=== PATIENT | female | born 1990 | race Caucasian/White ===

== ENCOUNTER 2016-04-26 01:05 | Emergency (ER) | payer MEDICAID ==
[~2016-04-26] VITALS: Ht 170.2 cm; Wt 85.8 kg
[~2016-04-26 01:05] MED LIST: CLIN1CAP6 PO; DOXY10TA PO; PREN29TA PO; ZOFR4TAB3 SL
[2016-04-26 01:12] VITALS: BP 111/82; PULSE 117; RESP 18; TEMP 98.8; O2SAT 96
--- NOTE | 2016-04-26 02:32 | PD ---
HPI Chief Complaint: Chest Pain Time Seen by Provider: 02:26 Travel History International Travel<30 days: No Contact w/Intl Traveler<30days: No Traveled to known affect area: No History of Present Illness HPI 26-year-old female presents to the emergency department by private transportation for complaint of chest pain and abdominal pain. According the patient she is 7 months . Patient is 4 para 3 AB 0. Patient states she is followed by up CYTOLOGIST and [facility] and was seen by her specialist 2 weeks ago at that time she was told that she's been having abdominal pain due to adjustment of the pelvis for the and due to her chronic back pain that she previously was prescribed hydrocodone for related to previous back surgeries. Patient states she's been taking acetaminophen but has not provided adequate pain relief. Patient states she took acetaminophen before dinner this evening but vomited the acetaminophen and she takes this for her chronic hip/lower abdominal pain/back pain. Patient states that she did not notice any bilious emesis or coffee-ground emesis or hematemesis. Patient states that she was not having chest pain or new abdominal pain at that time. Patient states that she has not been having any burning with urination or frequent urination vaginal discharge or vaginal bleeding or fluid leak. 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 Patient's had no fever or chills. Patient denies flank pain. Patient states that at this time her chest pain which started suddenly around midnight that she thought might be reflux has completely resolved. Patient states that her abdominal discomfort is persistent. She does not think that this pain is the same as her hip pain/ pelvic pain/back pain. Patient has not noticed any vaginal discharge or vaginal bleeding or fluid leak since onset of abdominal discomfort around 12:30 AM or 1 AM. Patient states the discomfort has decreased. Patient reports that her chronic pain over the past 2 weeks is typically 10 over 10 in intensity and this is not as severe. PFSH Past Medical History Narrative Medical Chronic back pain, back surgery, , 4 para 3 AB 0 positive tobacco use; nursing notes reviewed Hx Anticoagulant Therapy: No Cardiovascular Problems: No Chemotherapy: No Cerebrovascular Accident: No Diabetes: No Diminished Hearing: No Respiratory: No : 3 Para: 3 Past Surgical History Section: Yes Hysterectomy: No Social History Alcohol Use: No Tobacco Use: Yes (1/2 ppd ) Substance Use: No Allergies-Medications (Allergen,Severity, Reaction): Coded Allergies: Latex (Verified Allergy, Intermediate, Rash, 04/26/16) Reported Meds & Prescriptions Reported Meds & Active Scripts Active Reported Plus Iron 29-1 mg ( Vit-Iron Carbonyl) 1 Tab Tab 1 Tab PO DAILY Review of Systems Except as stated in HPI: all other systems reviewed are Neg General / Constitutional: No: Fever, Chills HENT: No: Congestion Cardiovascular: Positive: Chest Pain or Discomfort, No: Palpitations, Diaphoresis, Syncope, Dyspnea on exertion Respiratory: No: Cough, Shortness of Breath Gastrointestinal: Positive: Abdominal Pain, No: Nausea, Vomiting, Diarrhea, Hematemesis, Loss of Appetite Genitourinary: No: Urgency, Frequency, Dysuria, Pelvic Pain, Flank Pain, Discharge, Vaginal Bleeding Musculoskeletal: No: Myalgias, Arthralgias Skin: No Rash Neurologic: No: Weakness Psychiatric: No: Anxiety Hematologic/Lymphatic: No: Easy Bruising Physical Exam Narrative GENERAL: Well-developed well-nourished female in no acute distress no respiratory distress SKIN: Warm and dry. HEAD: Normocephalic. EYES: No scleral icterus. No injection or drainage. NECK: Supple, trachea midline. No JVD or lymphadenopathy. CARDIOVASCULAR: Regular rate and rhythm without murmurs, gallops, or rubs. RESPIRATORY: Breath sounds equal bilaterally. No accessory muscle use. GASTROINTESTINAL: Abdomen soft, non-tender, nondistended; fundal height 4 finger breaths below the diaphragm; activity noted to palpation no rhythmic contractions palpable; bedside heart tones 148. Pelvic exam: Bimanual exam cervix is long and thick with os closed. No blood noted on exam glove. MUSCULOSKELETAL: No cyanosis, or edema. BACK: Nontender without obvious deformity. No CVA tenderness. Data Data Last Documented VS Vital Signs Date Time Temp Pulse Resp B/P Pulse Ox O2 Delivery O2 Flow Rate FiO2 04/26/16 04:53 99 18 110/68 99 04/26/16 02:45 Room Air 04/26/16 01:12 98.8 Orders Urinalysis - C+S If Indicated (04/26/16 02:45) Urine Culture (04/26/16 02:53) Nitrofurantoin Monohyd Macrocr (Macrobid (04/26/16 03:30) Acetaminophen (Tylenol) (04/26/16 03:30) Fentanyl Inj (Fentanyl Inj) (04/26/16 06:15) Labs Laboratory Tests Test 04/26/16 02:53 Urine Color YELLOW Urine Turbidity SLIGHT Urine pH 6.0 Urine Specific [place] 1.015 Urine Protein TRACE mg/dL Urine Glucose (UA) NEG mg/dL Urine Ketones NEG mg/dL Urine Occult Blood SMALL Urine Nitrite POS Urine Bilirubin NEG Urine Leukocyte Esterase TRACE Urine WBC 0-2 /hpf Urine Squamous Epithelial 0-5 /hpf Cells Urine Bacteria MOD /hpf Urine Mucus OCC /lpf Microscopic Urinalysis Comment CULTURE INDICATED MDM Medical Decision Making Medical Screen Exam Complete: Yes Emergency Medical Condition: Yes Medical Record Reviewed: Yes Interpretation(s) EKG: Sinus tachycardia rate [address] elevation or injury pattern change noted Differential Diagnosis Atypical chest pain, esophagitis, biliary colic, abdominal pain, premature labor , UTI, appendicitis Narrative Course EKG performed which reveals sinus tachycardia rate of [address] elevation or injury pattern change noted; urine specimen collected and sent for resulting UA: Positive nitrites positive leukocyte Estrace positive bacteria culture indicated; patient administered first dose of oral antibiotic Macrobid as well as acetaminophen for complaint of pain Case discussed with on-call OB ED physician Dr. Ribeiro who will accept patient to [facility] OB ED for monitoring; patient is aware of plan to transfer her from this emergency department [facility] to the [facility] OB ED for monitoring; patient is aware that she will be transported by EMS to our main campus facility. Physician Communication Physician Communication case discussed with Dr Ribeiro -- OB ED MD --will accept to [facility] OB ED for monitoring Diagnosis Primary Impression: Abdominal pain during in third trimester Additional Impressions: UTI (urinary tract infection) Qualified Code: N39.0 - Urinary tract infection without hematuria, site unspecified Atypical chest pain Admitting Information Admitting Physician Requests: Observation Omayra lAlen MD Apr 26, 2016 02:32 Omayra Allen MD Apr 26, 2016 02:32
[2016-04-26 02:45] VITALS: BP 105/69; PULSE 102; RESP 18; O2SAT 98
[2016-04-26 03:05] LABS: BLOOD, URINE SMALL (NEG); GLUCOSE,URINE NEG (NEG); KETONE, URINE NEG (NEG)
[2016-04-26 03:06] LABS: NITRITE,URINE POS (NEG); URINE COLOR YELLOW (YELLW/STRAW)
[2016-04-26 03:07] LABS: MUCUS URINE OCC /lpf (OCC)
[2016-04-26 03:08] LABS: BACTERIA, URINE MOD /hpf; COMMENT (UR) CULTURE INDICATED; CULTURE IF INDICATED CULTURE INDICATED; SQUAMOUS EPITHELIAL CELL URINE 0-5 /hpf (0-5); WBC, URINE 0-2 /hpf (0-5)
[2016-04-26] MEDS ORDERED: ACETAMINOPHEN 325 MG TAB PO ONE (03:30)
[2016-04-26] MEDS ORDERED: NITROFURANTOIN MONOHYD MACROCR 100 MG CAP PO ONE (03:30)
[2016-04-26 04:53] VITALS: BP 110/68
--- NOTE | 2016-04-26 06:07 | PD ---
HPI Chief Complaint Lower abdominal pain and 11 PM last night Date Seen: Apr 26, 2016 Travel History International Travel<30 Days: No Contact w/Intl Traveler<30Days: No Known Affected Area: No History of Present Illness HPI Patient is a 26-year-old white female previous at 30 weeks who presents as a transfer from [facility] for evaluation of the fetus after workup there for lower abdominal pain and back pain, she has no contractions no bleeding or rupture the membranes, heart rate is reactive , there are no contractions, and [place] the emergency room doctor workup for pain and shows a mild UTI but it had already been diagnosed by her OB doctor and [facility] and the patient had not received her Macrobid that the been called in [facility] her on Wednesday 2 days ago. The patient has a history of back surgeries and chronic pain in the abdomen and back long-term Para: 3 : 5 History Obstetric History Obstetric History previous Past Surgical History Narrative Surgical section, multiple back surgeries Social History Narrative Social History She has a history of substance abuse the past Alcohol Use: No Tobacco Use: Yes Substance Abuse: No Allergies-Medications (Allergen,Severity, Reaction): Coded Allergies: Latex (Verified Allergy, Intermediate, Rash, 04/26/16) Home Meds Reported Medications Vit-Iron Carbonyl ( Plus Iron 29-1 mg)1 Tab Tab1 Tab PO DAILY #30 TAB Ref 0 01/06/16 Discontinued Reported Medications Doxylamine-Pyridoxine (Diclegis)10-10 Mg Tab1 Tab PO DAILY 01/06/16 Doxylamine-Pyridoxine (Diclegis)10-10 Mg Tab2 Tab PO HS 01/06/16 Discontinued Scripts Clindamycin 300 Mg [id number] Mg PO Q6H 10 Days Ref 0 Prov:Javid Boles MD 01/06/16 Ondansetron Odt (Zofran Odt)4 Mg Tab4 Mg SL Q8HR PRN (Nausea/Vomiting) #12 TAB Ref 0 Prov:Javid Boles MD 01/06/16 Review of Systems General / Constitutional: No: Fever, Weight Gain, Chills, Other Eyes: No: Diploplia, Blurred Vision, Visual changes, Pain, Photophobia HENT: No: Headaches, Vertigo, Lightheadedness Cardiovascular: No: Irregular Rhythm, Chest Pain or Discomfort, Palpitations, Tachycardia, Syncope, Varicosities, Edema, Cyanosis Respiratory: No: Cough, Short of Breath, Other Gastrointestinal: Abdominal Pain, No: Nausea, Vomiting, Diarrhea Genitourinary: Pelvic Pain, No: Decreased Urinary Output, Oliguria Musculoskeletal: No: Limited ROM, Weakness, Cramping, Edema, Pain Skin: No Rash, No Itching, No Dryness, No Lumps, No Change in Pigmentation, No Change in Nails, No Alopecia, No Lesions Neurologic: No: Weakness, Dizziness, Syncope, Focal Abnormalities, Coordination Problem, Headache, Slurred Speech, Seizures Psychiatric: No: Depression, Suicidal Ideations, Homicidal Ideation Endocrine: No: Heat Intolerance, Cold Intolerance, Polydipsia, Polyuria, Other Physical Exam Vital Signs Date Time Temp Pulse Resp B/P Pulse Ox O2 Delivery O2 Flow Rate FiO2 04/26/16 04:53 99 18 110/68 99 04/26/16 04:51 18 04/26/16 02:45 102 18 105/69 98 Room Air 04/26/16 01:12 98.8 117 18 111/82 96 Narrative GENERAL: Well-nourished, well-developed patient. In no acute distress SKIN: Warm and dry. HEAD: Normocephalic and atraumatic. EYES: No scleral icterus. No injection or drainage. ENT: No nasal drainage noted. Mucous membranes pink. Airway patent. NECK: Supple, trachea midline. No JVD. CARDIOVASCULAR: Regular rate and rhythm without murmurs, gallops, or rubs. RESPIRATORY: Breath sounds equal bilaterally. No accessory muscle use. BREASTS: Bilateral exam showed no masses , no retractions, no nipple discharge. ABDOMEN/GI: Abdomen soft, minimally-tender, bowel sounds present, no rebound, no guarding Gravid to [30-] weeks size Fundal Height: [30-] GENITOURINARY: External Genitalia: intact and normal in appearance BUS glands: [-] Cervix: [Closed-] Dilatation: [Closed-] Effacement: [-] Thick Station: [-3] Membranes: [intact ] Uterine Contractions: [none-] FHT's: Category: [1-] Baseline: [-144] Reactive: [-yes] Variability: [mod-] Decels: [-none] EXTREMITIES: No cyanosis or edema. BACK: Nontender without obvious deformity. No CVA tenderness. NEUROLOGICAL: Awake and alert. Motor and sensory grossly within normal limits. Five out of 5 muscle strength in all muscle groups. Normal speech. Data Data Orders Urinalysis - C+S If Indicated (04/26/16 02:45) Urine Culture (04/26/16 02:53) Nitrofurantoin Monohyd Macrocr (Macrobid (04/26/16 03:30) Acetaminophen (Tylenol) (04/26/16 03:30) Labs Laboratory Tests Test 04/26/16 02:53 Urine Color YELLOW Urine Turbidity SLIGHT Urine pH 6.0 Urine Specific [place] 1.015 Urine Protein TRACE Urine Glucose (UA) NEG Urine Ketones NEG Urine Occult Blood SMALL Urine Nitrite POS Urine Bilirubin NEG Urine Leukocyte Esterase TRACE Urine WBC 0-2 Urine Squamous Epithelial 0-5 Cells Urine Bacteria MOD Urine Mucus OCC Microscopic Urinalysis Comment CULTURE INDICATED Date/Time Procedure Status Source Growth 04/26/16 02:53 Urine Culture Received Urine Clean Catch Pending MDM Interpretation(s) This patient is a 26-year-old white female previous who is followed by an OB doctor in [facility] and she lives [place], she presents complaining of lower abdominal pain bilaterally and back pain chronically. She was transferred from the [facility] [place] to monitor the baby after their workup and treatment. She has a mild UTI that was confirmed by josiane fenton and she is known this for several days her doctor called in a prescription for Macrobid 2 days ago she has not been able to get it yet. The monitor tracing is reactive and no contractions cervix is closed, this appears to be a soft tissue strain her pain is chronic, and all OB problems been ruled out she has a normal fetus normal heart rate tracing Plan Planned off the patient IM shot of pain medication just to relieve her symptoms tonight, she is to be at home bedrest over the next several days with heating pad or hot bath, she is use Tylenol liberally and increase her oral fluid intake and take her prescribed Macrobid for the UTI ,.that she's to follow-up with her OB doctor in on Wednesday if not improved Diagnosis Diagnosis: Primary Impression: Abdominal pain during in third trimester Additional Impressions: Atypical chest pain UTI (urinary tract infection) Qualified Code: N39.0 - Urinary tract infection without hematuria, site unspecified Disposition: 01 DISCHARGE HOME Condition: Stable Fredy Charles II, MD Apr 26, 2016 06:07
[2016-04-26 07:22] VITALS: RESP 16
--- NOTE | 2016-04-26 11:05 | EKG ---
Date Performed: 04/26/2016 Time Performed: 01:29:34 PTAGE: 26 years EKG: Sinus tachycardia. Poor R wave progression - probable normal variant Inferior T wave change s are nonspecific Borderline ECG NO PREVIOUS TRACING DOCTOR: Bakari Trejo Interpretating Date/Time 04/26/2016 11:03:37
== END 2016-04-26 07:36 | disposition home or self-care (01) ==
LOC: PHED 01:05 → HOBED 07:36
DX: O23.43 Unspecified infection of urinary tract in pregnancy, third trimester (principal); B96.20 Unspecified Escherichia coli [E. coli] as the cause of diseases classified elsewhere; R07.89 Other chest pain; Z3A.30 30 weeks gestation of pregnancy
CPT/HCPCS: 81001; 87077; 87086; 87186; 93005; 96372; 99284; J3010; 99281

== ENCOUNTER 2016-04-29 21:35 | Inpatient (IN) | payer MEDICAID ==
[2016-04-29] MEDS: ceFAZolin 2 GM PREMIX 50 ML IV SCH (22:00)
[2016-04-29] MEDS ORDERED: LACTATED RINGER'S 1000 ML INJ 1,000 ML IV SCH (22:17)
--- NOTE | 2016-04-29 22:17 | HHI.HP ---
HPI Chief Complaint Severe back pain Date Seen: Apr 29, 2016 Travel History International Travel<30 Days: No Contact w/Intl Traveler<30Days: No Known Affected Area: No History of Present Illness HPI Patient is a 26-year-old white female previous now 31 weeks who presents combining of severe and increasing back pain. She denies vaginal bleeding or leakage of fluid or contractions denies abdominal pain just severe back pain is her problem. This patient was here 3 days ago I saw her then she was referred from [facility] just evaluation of the baby after being seen there for abdominal pain. Urinalysis negative obtained there was positive for UTI culture was done which showed greater than 100,000 colonies of Escherichia coli which basically was sensitive to all every antibiotic on the list, however the patient did start Macrobid a day or so late but did started she's had Cherri half of her Macrobid dosing except for today when she is had nausea and vomiting and didn't take it but even though she started the Macrobid which the Escherichia coli was sensitive to Macrobid ,she's only gotten worse not better. heart rate tracing is reactive today and no contractions noted Para: 3 : 5 History Obstetric History Obstetric History Previous Past Surgical History Narrative Surgical section, multiple back surgeries Social History Alcohol Use: No Tobacco Use: Yes Substance Abuse: Yes Allergies-Medications (Allergen,Severity, Reaction): Coded Allergies: Latex (Verified Allergy, Intermediate, Rash, 04/26/16) Home Meds Reported Medications Vit-Iron Carbonyl ( Plus Iron 29-1 mg)1 Tab Tab1 Tab PO DAILY #30 TAB Ref 0 01/06/16 Discontinued Reported Medications Doxylamine-Pyridoxine (Diclegis)10-10 Mg Tab1 Tab PO DAILY 01/06/16 Doxylamine-Pyridoxine (Diclegis)10-10 Mg Tab2 Tab PO HS 01/06/16 Discontinued Scripts Clindamycin 300 Mg [id number] Mg PO Q6H 10 Days Ref 0 Prov:Javid Boles MD 01/06/16 Ondansetron Odt (Zofran Odt)4 Mg Tab4 Mg SL Q8HR PRN (Nausea/Vomiting) #12 TAB Ref 0 Prov:Javid Boles MD 11/28/16 Review of Systems General / Constitutional: No: Fever, Weight Gain, Chills, Other Eyes: No: Diploplia, Blurred Vision, Visual changes, Pain, Photophobia HENT: No: Headaches, Vertigo, Lightheadedness Cardiovascular: No: Irregular Rhythm, Chest Pain or Discomfort, Palpitations, Tachycardia, Syncope, Varicosities, Edema, Cyanosis Respiratory: No: Cough, Short of Breath, Other Gastrointestinal: Nausea, Vomiting, No: Diarrhea Genitourinary: No: Decreased Urinary Output, Oliguria Musculoskeletal: No: Limited ROM, Weakness, Cramping, Edema, Pain Skin: No Rash, No Itching, No Dryness, No Lumps, No Change in Pigmentation, No Change in Nails, No Alopecia, No Lesions Neurologic: No: Weakness, Dizziness, Syncope, Focal Abnormalities, Coordination Problem, Headache, Slurred Speech, Seizures Psychiatric: No: Depression, Suicidal Ideations, Homicidal Ideation Endocrine: No: Heat Intolerance, Cold Intolerance, Polydipsia, Polyuria, Other Physical Exam Narrative GENERAL: Well-nourished, well-developed patient. In moderate distress from pain SKIN: Warm and dry. HEAD: Normocephalic and atraumatic. EYES: No scleral icterus. No injection or drainage. ENT: No nasal drainage noted. Mucous membranes pink. Airway patent. NECK: Supple, trachea midline. No JVD. CARDIOVASCULAR: Regular rate and rhythm without murmurs, gallops, or rubs. RESPIRATORY: Breath sounds equal bilaterally. No accessory muscle use. BREASTS: Bilateral exam showed no masses , no retractions, no nipple discharge. ABDOMEN/GI: Abdomen soft, non-tender, bowel sounds present, no rebound, no guarding , positive bilateral CVA tenderness right greater than left Gravid to [-31] weeks size Fundal Height: [31-] GENITOURINARY: External Genitalia: intact and normal in appearance BUS glands: [-] Cervix: [-] Dilatation: [Closed-] Effacement: [-] Thick Station: [-3] Membranes: [intact ] Uterine Contractions: [none-] FHT's: Category: [-1] Baseline: [133-] Reactive: [yes-] Variability: [mod-] Decels: [none-] EXTREMITIES: No cyanosis or edema. BACK: Nontender without obvious deformity. No CVA tenderness. NEUROLOGICAL: Awake and alert. Motor and sensory grossly within normal limits. Five out of 5 muscle strength in all muscle groups. Normal speech. Data Data Orders Ob (2e) Additional Admit Info (04/29/16 22:07) Labs C urinalysis from April 26 with a positive UA and positive urine culture for Escherichia coli Assessment/Plan Assessment and Plan This patient is 26-year-old white female previous at 31 weeks with increasing back pain after having a urine culture positive for Escherichia coli done 48 hours ago, she has been on Macrobid for the last day and a half but it is only at worse not better sores her pain she denies fever chills , however is positive for nausea vomiting today saying she can't hold anything down. On exam the patient has marked CVA tenderness bilaterally right greater than left. Impression is pyelonephritis at 31 weeks, plan is IV antibiotics inpatient for at least 48 hours or until she has a significant decrease in her CVA tenderness and after that suppressive therapy the rest of with a single Macrodantin daily Fredy Charles II, MD Apr 29, 2016 22:17
[2016-04-29] MEDS ORDERED: ACETAMINOPHEN 325 MG TAB PO PRN (22:30)
[2016-04-29] MEDS ORDERED: ZOLPIDEM TARTRATE 5 MG TAB PO PRN (22:30)
[2016-04-29] MEDS ORDERED: SODIUM CHLORIDE 0.9% FLUSH 10 ML FLUSH IV FLUSH PRN (22:30)
[2016-04-29 22:40] VITALS: RESP 18
[2016-04-29] MEDS: ONDANSETRON HCL 4 MG/2 ML VIAL IV PRN (23:00)
[2016-04-29 23:30] VITALS: RESP 18
[2016-04-29 23:34] LABS: AUTOMATED NEUTROPHIL # 8.6 TH/MM3 (1.8-7.7); BASOPHIL # 0.1 TH/MM3 (0-0.2); BASOPHIL % 0.7 % (0.0-2.0); EOSINOPHIL # 0.1 TH/MM3 (0-0.4); HEMATOCRIT 31.4 % (35.0-46.0); HEMO FLAGS DIFF FINAL; LYMPH % 28.1 % (9.0-44.0); LYMPHOCYTE # 3.7 TH/MM3 (1.0-4.8); MEAN CELL VOLUME 94.3 FL (80.0-100.0); MEAN CORPUSCULAR HEMOGLOBIN 32.7 PG (27.0-34.0); MEAN CORPUSCULAR HGB CONC 34.7 % (32.0-36.0); MONO % 5.5 % (0.0-8.0); NEUT % 64.7 % (16.0-70.0); PLATELET COUNT 168 TH/MM3 (150-450); RED BLOOD COUNT 3.33 MIL/MM3 (4.00-5.30); RED CELL DISTRIBUTION WIDTH 13.1 % (11.6-17.2); WHITE BLOOD COUNT 13.3 TH/MM3 (4.0-11.0)
[2016-04-30] VITALS (10 sets, daily range): BP systolic 101–109; BP diastolic 57–63; PULSE 93–95; RESP 18–20; TEMP 97.4–98
[2016-04-30 00:13] LABS: AMPHETAMINE, URINE NEG (NEG); BARBITURATES, URINE NEG (NEG); COCAINE, URINE NEG (NEG)
[2016-04-30] MEDS: HYDROmorphone HCL PF 2 MG/ML VIAL IV PRN ×2 (01:15→04:48)
[2016-04-30] MEDS ORDERED: HYDROmorphone HCL PF 1 MG/ML VIAL IV PRN (01:15)
[2016-04-30] MEDS ORDERED: CITRIC ACID-SODIUM CITRATE LIQ 30 ML UDC ONE (05:21)
[2016-04-30] MEDS: ceFAZolin 2 GM PREMIX 50 ML IV SCH (06:25)
[2016-04-30] MEDS ORDERED: oxyCODONE/ACETAMINOPHEN 5 MG/325 MG TAB PO PRN (07:30)
[2016-04-30] MEDS: ONDANSETRON HCL 4 MG/2 ML VIAL IV PRN (07:33)
--- NOTE | 2016-04-30 08:38 | PD.OB.ANTE ---
Subjective Diagnosis: (1) UTI (urinary tract infection) (2) Pyelonephritis affecting Interval History Patient seen and examined this morning. Afebrile vital signs stable. No acute events overnight. Patient continues to complain of pain in her back, though she admits to being able to get up and walk around and the room. She understands the plan to start oral pain control as well as one more dose of IV antibiotics. She also understands the plan to go home on a daily antibiotic by mouth until delivery. She agrees with this plan of care. Objective Vital Signs Vital Signs Date Time Temp Pulse Resp B/P Pulse Ox O2 Delivery O2 Flow Rate FiO2 04/30/16 07:45 97.4 18 04/30/16 07:32 95 109/63 04/30/16 06:00 18 04/30/16 05:30 18 04/30/16 04:15 20 04/30/16 03:30 18 04/30/16 03:00 18 04/30/16 01:22 98.0 93 101/57 04/30/16 01:21 18 04/30/16 00:15 18 04/29/16 23:30 18 04/29/16 22:40 18 Lab & Micro Results Test 04/29/16 04/29/16 22:37 23:45 White Blood Count 13.3 TH/MM3 Red Blood Count 3.33 MIL/MM3 Hemoglobin 10.9 GM/DL Hematocrit 31.4 % Mean Corpuscular Volume 94.3 FL Mean Corpuscular Hemoglobin 32.7 PG Mean Corpuscular Hemoglobin 34.7 % Concent Red Cell Distribution Width 13.1 % Platelet Count 168 TH/MM3 Mean Platelet Volume 10.5 FL Neutrophils (%) (Auto) 64.7 % Lymphocytes (%) (Auto) 28.1 % Monocytes (%) (Auto) 5.5 % Eosinophils (%) (Auto) 1.0 % Basophils (%) (Auto) 0.7 % Neutrophils # (Auto) 8.6 TH/MM3 Lymphocytes # (Auto) 3.7 TH/MM3 Monocytes # (Auto) 0.7 TH/MM3 Eosinophils # (Auto) 0.1 TH/MM3 Basophils # (Auto) 0.1 TH/MM3 CBC Comment DIFF FINAL Differential Comment Urine Opiates Screen NEG Urine Barbiturates Screen NEG Urine Amphetamines Screen NEG Urine Benzodiazepines Screen NEG Urine Cocaine Screen NEG Urine Cannabinoids Screen NEG Physical Exam GENERAL: Well-nourished, well-developed patient. CARDIOVASCULAR: Regular rate and rhythm without murmurs, gallops, or rubs. RESPIRATORY: Breath sounds equal bilaterally. No accessory muscle use. ABDOMEN/GI: Abdomen soft, non-tender. Fundus: 32 GENITOURINARY: No contractions EXTREMITIES: No cyanosis or edema, non-tender, without signs of DVT. Back: + CVA tenderness Assessment and Plan Problem List: (1) Pyelonephritis affecting Status: Acute (2) UTI (urinary tract infection) Status: Acute (3) Intrauterine Status: Acute Assessment and Plan This patient is 26-year-old white female previous at 31 weeks with increasing back pain after having a urine culture positive for Escherichia coli with CVA tenderness 1. Intrauterine -Monitoring for contractions -Appropriate heart rate -Continue routine care 2. Pyelonephritis -Monitor vitals currently afebrile -Cefazolin for 48 hours -We will discharge on oral Macrodantin until the end of , after 48 hours of IV antibiotics -Pain control with Percocet -Repeat UA ordered Gavino Srivastava MD R2 Apr 30, 2016 08:38
[2016-04-30] MEDS ORDERED: SODIUM CHLORIDE 0.9% FLUSH 10 ML FLUSH IV FLUSH SCH (09:00)
[2016-04-30] MEDS ORDERED: CALCIUM CARBONATE 500 MG CHEWABLE TAB CHEW SCH (09:00)
[2016-04-30] MEDS ORDERED: NICOTINE 14 MG/24 HR PATCH TD SCH (09:00)
--- NOTE | 2016-04-30 09:51 | PD.OB.ANTE ---
Subjective Diagnosis: (1) Pyelonephritis affecting Diagnosis: Principal (2) UTI (urinary tract infection) Diagnosis: Principal (3) Intrauterine Diagnosis: Principal Interval History This patient has pyelonephritis at 31 weeks with positive urine culture for Escherichia coli and severe costovertebral angle pain she was admitted last night for IV antibiotics for 48 hours minimum. She understood that that was plan to admit her for inpatient therapy and that that was required at this stage she failed outpatient management. Now this morning the patient is decided she has to leave she has makes today she cannot stay in the hospital. I spine to the patient that she is risking her and her baby's health and life leaving prior to appropriate therapy that she could return with high fever or and labor and delivery. She understands this very clearly and still wants to leave she will sign AMA papers and leave [place], she says she was to go to her doctor and get readmitted [facility] for therapy because that's where she plans to have her repeat Objective Vital Signs Vital Signs Date Time Temp Pulse Resp B/P Pulse Ox O2 Delivery O2 Flow Rate FiO2 04/30/16 07:45 97.4 18 04/30/16 07:32 95 109/63 04/30/16 06:00 18 04/30/16 05:30 18 04/30/16 04:15 20 04/30/16 03:30 18 04/30/16 03:00 18 04/30/16 01:22 98.0 93 101/57 04/30/16 01:21 18 04/30/16 00:15 18 04/29/16 23:30 18 04/29/16 22:40 18 Lab & Micro Results Test 04/29/16 04/29/16 22:37 23:45 White Blood Count 13.3 TH/MM3 Red Blood Count 3.33 MIL/MM3 Hemoglobin 10.9 GM/DL Hematocrit 31.4 % Mean Corpuscular Volume 94.3 FL Mean Corpuscular Hemoglobin 32.7 PG Mean Corpuscular Hemoglobin 34.7 % Concent Red Cell Distribution Width 13.1 % Platelet Count 168 TH/MM3 Mean Platelet Volume 10.5 FL Neutrophils (%) (Auto) 64.7 % Lymphocytes (%) (Auto) 28.1 % Monocytes (%) (Auto) 5.5 % Eosinophils (%) (Auto) 1.0 % Basophils (%) (Auto) 0.7 % Neutrophils # (Auto) 8.6 TH/MM3 Lymphocytes # (Auto) 3.7 TH/MM3 Monocytes # (Auto) 0.7 TH/MM3 Eosinophils # (Auto) 0.1 TH/MM3 Basophils # (Auto) 0.1 TH/MM3 CBC Comment DIFF FINAL Differential Comment Urine Opiates Screen NEG Urine Barbiturates Screen NEG Urine Amphetamines Screen NEG Urine Benzodiazepines Screen NEG Urine Cocaine Screen NEG Urine Cannabinoids Screen NEG Physical Exam GENERAL: Well-nourished, well-developed patient. CARDIOVASCULAR: Regular rate and rhythm without murmurs, gallops, or rubs. RESPIRATORY: Breath sounds equal bilaterally. No accessory muscle use. ABDOMEN/GI: Abdomen soft, non-tender. Fundus: [-] GENITOURINARY: External Genitalia: intact and normal in appearance Cervix: [-] Dilatation: [-] Effacement: [-] Station: [-] Presentation: [-] Membranes: [-] Uterine Contractions: [-] FHT's: Category: [-] Baseline: [-] Reactive: [-] Variability: [-] Decels: [-] EXTREMITIES: No cyanosis or edema, non-tender, without signs of DVT. Assessment and Plan Problem List: (1) Pyelonephritis affecting Status: Acute (2) UTI (urinary tract infection) Status: Acute (3) Intrauterine Status: Acute Assessment and Plan This patient is 26-year-old white female previous at 31 weeks with increasing back pain after having a urine culture positive for Escherichia coli with CVA tenderness 1. Intrauterine -Monitoring for contractions -Appropriate heart rate -Continue routine care 2. Pyelonephritis -Monitor vitals currently afebrile -Cefazolin for 48 hours -We will discharge on oral Macrodantin until the end of , after 48 hours of IV antibiotics -Pain control with Percocet -Repeat UA ordered Fredy Charles II, MD Apr 30, 2016 09:50
[2016-04-30] MEDS ORDERED: REMOVE OLD NICODERM (NICOTINE) PATCH TD SCH (21:00)
[2016-05-06 13:27] LABS: BATH SALTS (MDPV) UR NEG (NEG); ECSTASY (MDMA) UR NEG (NEG); HEROIN (6-ACETYLMORPHINE) UR NEG (NEG); K2 SPICE UR NEG (NEG); OBMETHADONE UR NEG (NEG); OXYCODONE (PERCODAN) NEG (NEG); PHENCYCLIDINE URINE NEG (NEG)
== END 2016-04-30 10:00 | disposition left against medical advice (07) | DRG 781 ==
LOC: HOBED 21:35 → H2EA 22:09
PROVIDERS: ADMIT Obstetrics & Gynecology Maternal & Fetal Medicine; ATTEND Obstetrics & Gynecology Maternal & Fetal Medicine
DX: O23.03 Infections of kidney in pregnancy, third trimester (principal); O34.219 Maternal care for unspecified type scar from previous cesarean delivery; B96.20 Unspecified Escherichia coli [E. coli] as the cause of diseases classified elsewhere; N12 Tubulo-interstitial nephritis, not specified as acute or chronic; O99.333 Smoking (tobacco) complicating pregnancy, third trimester; F17.200 Nicotine dependence, unspecified, uncomplicated; Z3A.31 31 weeks gestation of pregnancy; M54.9 Dorsalgia, unspecified; Z91.040 Latex allergy status
CPT/HCPCS: 80307; 85025; 99284; G0481; J0690; J1170; J2405; J3010; J7120

== ENCOUNTER 2016-07-01 23:51 | Emergency (ER) | payer MEDICAID ==
[~2016-07-01] VITALS: Ht 170.2 cm; Wt 81.5 kg
[~2016-07-01 23:51] MED LIST changes: -CLIN1CAP6 PO; -DOXY10TA PO; -ZOFR4TAB3 SL
[2016-07-02 00:10] VITALS: BP 124/92; PULSE 100; RESP 16; TEMP 98.3; O2SAT 98
--- NOTE | 2016-07-02 01:14 | PD ---
HPI Chief Complaint: Pain: Acute or Chronic Time Seen by Provider: 01:09 Travel History International Travel<30 days: No Contact w/Intl Traveler<30days: No Traveled to known affect area: No History of Present Illness HPI The patient is a 26-year-old female that had a on June 10. She complains of pain around the site. She also had a tubal ligation at that time. She saw at 2 weeks her sign painter apprentice who is in [facility] and apparently the incision looked good at that time. There is no vomiting. There is no fever. She is taking BC powders for the pain. The patient is breast- feeding. PFSH Past Medical History Hx Anticoagulant Therapy: No Cardiovascular Problems: No Chemotherapy: No Cerebrovascular Accident: No Diabetes: No Diminished Hearing: No Respiratory: No Tetanus Vaccination: Unknown Influenza Vaccination: No ?: Not : 5 Para: 3 Miscarriage: 1 : 0 Past Surgical History Section: Yes (X 3) Hysterectomy: No Social History Alcohol Use: No Tobacco Use: Yes Substance Use: No Allergies-Medications (Allergen,Severity, Reaction): Coded Allergies: Latex (Verified Allergy, Intermediate, Rash, 07/02/16) Reported Meds & Prescriptions Reported Meds & Active Scripts Active Reported Plus Iron 29-1 mg ( Vit-Iron Carbonyl) 1 Tab Tab 1 Tab PO DAILY Review of Systems Except as stated in HPI: all other systems reviewed are Neg Physical Exam Narrative GENERAL: The patient is alert, oriented 3 and slight apparent distress with her incision discomfort. Her vital signs show heart rate of 100 but otherwise normal. SKIN: Focused skin assessment warm/dry. HEAD: Atraumatic. Normocephalic. EYES: Pupils equal and round. No scleral icterus. No injection or drainage. ENT: No nasal bleeding or discharge. Mucous membranes pink and moist. NECK: Trachea midline. No JVD. CARDIOVASCULAR: Regular rate and rhythm. No murmur appreciated. RESPIRATORY: No accessory muscle use. Clear to auscultation. Breath sounds equal bilaterally. GASTROINTESTINAL: Abdomen soft, non-tender except for around the incision, nondistended. Hepatic and splenic margins not palpable. The incision is tender but there is no erythema, fluctuance present, drainage present are crusting. The wound appears to be healing well. No masses are felt below the incision. She is tender throughout the range of the incision and not on one area. MUSCULOSKELETAL: No obvious deformities. No clubbing. No cyanosis. No edema. NEUROLOGICAL: Awake and alert. No obvious cranial nerve deficits. Motor grossly within normal limits. Normal speech. PSYCHIATRIC: Appropriate mood and affect; insight and judgment normal. Data Data Last Documented VS Vital Signs Date Time Temp Pulse Resp B/P Pulse Ox O2 Delivery O2 Flow Rate FiO2 07/02/16 00:45 18 07/02/16 00:10 98.3 100 124/92 98 MDM Medical Decision Making Medical Screen Exam Complete: Yes Emergency Medical Condition: Yes Medical Record Reviewed: Yes Differential Diagnosis Incision pain, subcutaneous abscess, cellulitis, dehiscence Narrative Course There is no drainage, evidence of abscess or cellulitis or dehiscence. This appears to be simply incision pain. The mother is breast-feeding and she should limit pain medications to Tylenol. Impression: Incision pain Plan: The patient should take plain Tylenol for pain. Diagnosis Primary Impression: Incisional pain Additional Instructions: As we discussed, discontinue the BC powders if you're breast-feeding. Follow- up with your prototype machinist about your son and breast-feeding. Take plain Tylenol for the pain. Follow-up with your sign painter apprentice as soon as possible. Med/Other Pt SpecificInfo: No Change to Meds Disposition: 01 DISCHARGE HOME Condition: Stable Baljit Oliver MD July 02, 2016 01:14
[2016-07-02 01:37] VITALS: BP 122/88; PULSE 92; RESP 18; O2SAT 98
== END 2016-07-02 01:39 | disposition home or self-care (01) ==
LOC: PHED 23:51
DX: R10.9 Unspecified abdominal pain (principal); Z72.0 Tobacco use; Z39.2 Encounter for routine postpartum follow-up
CPT/HCPCS: 99282

== ENCOUNTER 2016-08-02 23:17 | Emergency (ER) | payer MEDICAID ==
[~2016-08-02] VITALS: Ht 170.2 cm; Wt 80.0 kg
[2016-08-02 23:21] VITALS: BP 116/72; PULSE 99; RESP 16; TEMP 98.2; O2SAT 99
[2016-08-03] MEDS ORDERED: NICO14DI T-DERMAL (01:03)
[2016-08-03] MEDS ORDERED: SODIUM CHLOR 0.9% 1000 ML INJ 1,000 ML IV ONE (01:15)
[2016-08-03 01:23] LABS: AUTOMATED NEUTROPHIL # 3.1 TH/MM3 (1.8-7.7); BASOPHIL # 0.1 TH/MM3 (0-0.2); EOSINOPHIL # 0.2 TH/MM3 (0-0.4); EOSINOPHIL % 2.9 % (0.0-4.0); HEMATOCRIT 36.6 % (35.0-46.0); HEMO FLAGS DIFF FINAL; LYMPH % 49.2 % (9.0-44.0); LYMPHOCYTE # 3.9 TH/MM3 (1.0-4.8); MEAN CELL VOLUME 92.3 FL (80.0-100.0); MEAN CORPUSCULAR HEMOGLOBIN 31.5 PG (27.0-34.0); MEAN CORPUSCULAR HGB CONC 34.1 % (32.0-36.0); MONO % 7.3 % (0.0-8.0); NEUT % 39.6 % (16.0-70.0); PLATELET COUNT 169 TH/MM3 (150-450); RED BLOOD COUNT 3.97 MIL/MM3 (4.00-5.30); RED CELL DISTRIBUTION WIDTH 13.5 % (11.6-17.2); WHITE BLOOD COUNT 7.9 TH/MM3 (4.0-11.0)
[2016-08-03 01:29] LABS: BLOOD, URINE TRACE (NEG); COMMENT (UR) CULTURE INDICATED; CULTURE IF INDICATED CULTURE INDICATED; GLUCOSE,URINE NEG (NEG); HYALINE CAST, URINE 1 /lpf (RARE); KETONE, URINE NEG (NEG); MUCUS URINE FEW /lpf (OCC); NITRITE,URINE NEG (NEG); SQUAMOUS EPITHELIAL CELL URINE 4 /hpf (0-5); URINE COLOR YELLOW (YELLW/STRAW)
[2016-08-03 01:34] LABS: APTT (PATIENT) 26.3 SEC (24.3-30.1); INTERNATIONAL NORMALIZED RATIO 0.9 RATIO
[2016-08-03 01:49] LABS: ALT (GPT) 53 U/L (10-53); ANION GAP 6 MEQ/L (5-15); AST (GOT) 31 U/L (15-37); BICARBONATE 29.7 MEQ/L (21.0-32.0); BLOOD UREA NITROGEN 13 MG/DL (7-18); CHLORIDE 109 MEQ/L (98-107); GLOMERULAR FILTRATION RATE 104 ML/MIN (>89); POTASSIUM 3.9 MEQ/L (3.5-5.1); SODIUM (NA) 145 MEQ/L (136-145)
--- NOTE | 2016-08-03 01:58 | PD ---
HPI Chief Complaint: Abdominal Pain Time Seen by Provider: 00:59 Travel History International Travel<30 days: No Contact w/Intl Traveler<30days: No Traveled to known affect area: No History of Present Illness HPI The patient is a 26 year old female who presents to the [facility] emergency department with a history of right lower quadrant abdominal pain and vaginal bleeding since delivering her child on 06/10/2016 by . She denies having any vaginal discharge. She reports that she's had sex only one time since delivery. She denies any concerns about sexually transmitted infections. She last saw her roofing apprentice 5 weeks ago to have her abiodun removed. Her WEB PRODUCTION ASSISTANT is Dr. Beltran in [facility]. The patient denies any history of fever, cough, congestion, neck pain, chest pain, shortness of breath , vomiting, diarrhea, urinary symptoms, or neurologic symptoms. Her last BM was today. She denies any blood in her stool. She is not breast feeding. Additionally, she reports that she developed an itchy rash prior to arrival. She reports that it is the same arm that she's been newly using a nicotine patch on. [facility] Past Medical History Narrative Medical The patient's past medical history is significant for anxiety and depression, cervical dysplasia last colposcopy was at 7 months with her last . Hx Anticoagulant Therapy: No Anxiety: Yes Depression: Yes Cardiovascular Problems: No Chemotherapy: No Cerebrovascular Accident: No Diabetes: No Diminished Hearing: No Respiratory: No ?: Not : 5 Para: 4 Miscarriage: 1 : 0 Tubal Ligation: Yes Past Surgical History Narrative Surgical The patient's past surgical history is significant for colposcopy, back sx x2, c -sections x4, btl. Section: Yes (x4) Hysterectomy: No Social History Alcohol Use: No Tobacco Use: No (quit 06/10/2016. ) Substance Use: No Allergies-Medications (Allergen,Severity, Reaction): Coded Allergies: Latex (Verified Allergy, Intermediate, Rash, 08/03/16) Reported Meds & Prescriptions Reported Meds & Active Scripts Active EC-Naprosyn (Naproxen) 500 Mg Tabdr 500 Mg PO BID PRN Reported Nicotine Patch (Nicotine) 14 Mg/24 Hr Patch 14 Mg T-DERMAL DAILY Review of Systems Except as stated in HPI: all other systems reviewed are Neg General / Constitutional: No: Fever Eyes: No: Visual changes HENT: No: Headaches Cardiovascular: No: Chest Pain or Discomfort Respiratory: No: Shortness of Breath Gastrointestinal: Positive: Abdominal Pain, No: Nausea, Vomiting, Diarrhea, Changes in Bowel Habits, Indigestion, Loss of Appetite Genitourinary: No: Dysuria Musculoskeletal: No: Pain Skin: No Rash Neurologic: No: Weakness Psychiatric: No: Depression Endocrine: No: Polydipsia Hematologic/Lymphatic: No: Easy Bruising Physical Exam Narrative General: The patient is a well-developed well-nourished female in no acute distress. Head and Neck exam: Head is normocephalic atraumatic. Eyes: EOMI, pupils are equal round and reactive to light. Nose: Midline septum with pink mucous membranes Mouth: Dentition unremarkable. Moist mucus membranes. Posterior oropharynx is not erythematous. No tonsillar hypertrophy. Uvula midline. Airway patent. Neck: No palpable lymphadenopathy. No nuchal rigidity. No thyromegaly. Cardiovascular: Regular rate and rhythm without murmurs, gallops, or rubs. Lungs: Clear to auscultation bilaterally. No wheezes, rhonchi, or rales. Abdomen: Soft, with reported discomfort on palpation along the right lower quadrant of the abdomen near the patient's border of the scar that appears to be healing well. There is no wound dehiscence. There is no erythema, edema, fluctuance, or pointing associated with her scar. No guarding, rebound, or rigidity. Negative Towson sign. Normal bowel sounds are audible. No tenderness on palpation of McBurney's point. Extremities: No clubbing, cyanosis, or edema. 2+ pulses in all 4 extremities. The patient has an area of erythematous papules on the left arm reported itching. This appears consistent with a contact dermatitis. Back: No costovertebral angle tenderness to palpation. Neurologic Exam: Grossly nonfocal. Skin Exam: Erythematous papules involving the left arm. Intact skin that is warm and dry. Data Data Last Documented VS Vital Signs Date Time Temp Pulse Resp B/P Pulse Ox O2 Delivery O2 Flow Rate FiO2 08/02/16 23:21 98.2 99 16 116/72 99 Room Air Orders Complete Blood Count With Diff (08/03/16 01:01) Comprehensive Metabolic Panel (08/03/16 01:01) Prothrombin Time / Inr (Pt) (08/03/16 01:01) Act Partial Throm Time (Ptt) (08/03/16 01:01) Lipase (08/03/16 01:01) Urinalysis - C+S If Indicated (08/03/16 01:01) Thyroid Stimulating Hormone (08/03/16 01:01) Us Pelvis Comp Environmental Health Manager/Non-Preg (08/03/16 01:01) Iv Access Insert/Monitor (08/03/16 01:01) Ecg Monitoring (08/03/16 01:01) Oximetry (08/03/16 01:01) Ed Urine Pregnancytest Poc (08/03/16 01:01) Sodium Chlor 0.9% 1000 Ml Inj (Ns 1000 M (08/03/16 01:15) Urine Culture (08/03/16 01:08) Ketorolac Inj (Toradol Inj) (08/03/16 02:15) Diphenhydramine Inj (Benadryl Inj) (08/03/16 02:15) Gc And Chlamydia Pcr (08/03/16 02:13) Wet Prep Profile (08/03/16 02:13) Ct Abd/Pel W Iv Contrast(Rout) (08/03/16 02:50) Iohexol 350 Inj (Omnipaque 350 Inj) (08/03/16 03:05) Labs Laboratory Tests Test 08/03/16 08/03/16 08/03/16 01:08 01:10 03:40 Urine Color YELLOW Urine Turbidity HAZY Urine pH 6.0 Urine Specific [place] 1.035 Urine Protein TRACE mg/dL Urine Glucose (UA) NEG mg/dL Urine Ketones NEG mg/dL Urine Occult Blood TRACE Urine Nitrite NEG Urine Bilirubin NEG Urine Urobilinogen 2.0 MG/DL Urine Leukocyte Esterase SMALL Urine RBC 2 /hpf Urine WBC 9 /hpf Urine Squamous Epithelial 4 /hpf Cells Urine Hyaline Casts 1 /lpf Urine Mucus FEW /lpf Microscopic Urinalysis Comment CULTURE INDICATED White Blood Count 7.9 TH/MM3 Red Blood Count 3.97 MIL/MM3 Hemoglobin 12.5 GM/DL Hematocrit 36.6 % Mean Corpuscular Volume 92.3 FL Mean Corpuscular Hemoglobin 31.5 PG Mean Corpuscular Hemoglobin 34.1 % Concent Red Cell Distribution Width 13.5 % Platelet Count 169 TH/MM3 Mean Platelet Volume 10.7 FL Neutrophils (%) (Auto) 39.6 % Lymphocytes (%) (Auto) 49.2 % Monocytes (%) (Auto) 7.3 % Eosinophils (%) (Auto) 2.9 % Basophils (%) (Auto) 1.0 % Neutrophils # (Auto) 3.1 TH/MM3 Lymphocytes # (Auto) 3.9 TH/MM3 Monocytes # (Auto) 0.6 TH/MM3 Eosinophils # (Auto) 0.2 TH/MM3 Basophils # (Auto) 0.1 TH/MM3 CBC Comment DIFF FINAL Differential Comment Prothrombin Time 10.0 SEC Prothromb Time International 0.9 RATIO Ratio Activated Partial 26.3 SEC Thromboplast Time Sodium Level 145 MEQ/L Potassium Level 3.9 MEQ/L Chloride Level 109 MEQ/L Carbon Dioxide Level 29.7 MEQ/L Anion Gap 6 MEQ/L Blood Urea Nitrogen 13 MG/DL Creatinine 0.68 MG/DL Estimat Glomerular Filtration 104 ML/MIN Rate Random Glucose 97 MG/DL Calcium Level 8.5 MG/DL Total Bilirubin 0.2 MG/DL Aspartate Amino Transf 31 U/L (AST/SGOT) Alanine Aminotransferase 53 U/L (ALT/SGPT) Alkaline Phosphatase 71 U/L Total Protein 7.0 GM/DL Albumin 3.3 GM/DL Lipase 88 U/L Thyroid Stimulating Hormone 3.140 uIU/ML 3rd Gen Clue Cells (Wet Prep) NONE SEEN Vaginal Trichomonas (Wet Prep) NONE SEEN Vaginal Yeast (Wet Prep) NONE SEEN Chlamydia trachomatis DNA NOT DETECTED (PCR) Neisseria gonorrhoeae DNA NOT DETECTED (PCR) MDM Medical Decision Making Medical Screen Exam Complete: Yes Emergency Medical Condition: Yes Medical Record Reviewed: Yes Interpretation(s) Last Impressions Abdomen/Pelvis CT 08/03/16 0250 Signed Impressions: Service Date/Time: Wednesday, August 03, 2016 03:03 - CONCLUSION: Acute findings. No evidence of free fluid or free intraperitoneal gas. Huang Holliday MD Pelvis Ultrasound 08/03/16 010 Signed Impressions: Service Date/Time: Wednesday, August 03, 2016 01:27 - CONCLUSION: Negative pelvic ultrasound. Endometrial stripe is normal thickness and has normal echotexture Huang Holliday MD Differential Diagnosis Postop abscess, versus urinary tract infection, versus retained products of conception, versus endometritis Narrative Course During the course of the patients emergency department visit, the patients history, examination, and differential diagnosis were reviewed with the patient. The patient had IV access obtained and blood work sent for analysis. The patient was placed on a youth nutritional monitor with oximetry and blood pressure monitoring. The patient was initially provided normal saline IV fluids, Toradol for pain, Benadryl 25 mg IV for itching. The patients laboratory studies were reviewed and remarkable for a white count of 7.9, hemoglobin 12.5, platelets 169 with 49.2 lymphocytes, CMP is remarkable for a chloride of 109, albumin 3.3, lipase 88, TSH 3.14, PT 10, INR 0.9, PTT 26.3, urinalysis trace occult blood, small leukocyte esterase, 9 RBCs, otherwise unremarkable. The patient's abnormalities and urinalysis could be explained by the patient's continued vaginal bleeding postdelivery. Wet prep is negative. Bedside test was negative. Radiology studies were reviewed and remarkable for a pelvic ultrasound that is unremarkable, no evidence of contained products of conception. CT scan of the abdomen and pelvis shows no acute abnormality. The patient will be discharged home to follow up with her novelties sales representative. She was given a prescription for an anti-inflammatory pain medication. The patient is resting comfortably and feels better, is alert and in no distress. The patients results and examination findings were discussed with the patient. The repeat examination is unremarkable and benign. The history, exam, diagnostic testing, and current condition do not suggest any significant pathology to warrant further testing, continued ED treatment, admission, or surgical evaluation at this point. The vital signs have been stable. The patient does not have uncontrollable pain, intractable vomiting, or other significant symptoms. The patient's condition is stable and appropriate for discharge. The patient will pursue further outpatient evaluation with a primary care physician or other designated or consulting physician as indicated in the discharge instructions. The patient expressed understanding and was agreeable with this plan. Diagnosis Primary Impression: Dysfunctional uterine bleeding Additional Impression: Abdominal pain Qualified Code: R10.31 - Right lower quadrant abdominal pain Referrals: Note Taker 3 days Patient Instructions: Dysfunctional Uterine Bleeding (ED), General Instructions Departure Forms: Tests/Procedures Med/Other Pt SpecificInfo: Prescription(s) given Scripts Naproxen DR (EC-Naprosyn)500 Mg [id number] Mg PO BID PRN (PAIN GREATER THAN 5) # 10 TAB Ref 0 Prov:Zulay Guzman MD 08/03/16 Disposition: 01 DISCHARGE HOME Condition: Stable Zulay Guzman MD Aug 03, 2016 01:57
[2016-08-03 01:59] LABS: ALKALINE PHOSPHATASE 71 U/L (45-117); TOTAL BILIRUBIN ADULT 0.2 MG/DL (0.2-1.0)
[2016-08-03] MEDS ORDERED: KETOROLAC TROMETHAMINE 30 MG/ML (IVP) VIAL IV PUSH ONE (02:15)
[2016-08-03] MEDS ORDERED: diphenhydrAMINE HCL 50 MG/ML VIAL IV PUSH ONE (02:15)
--- NOTE | 2016-08-03 02:31 | RADRPT ---
EXAM DATE/TIME: 08/03/2016 01:27 [facility] COMPARISON: No previous studies available for comparison. INDICATIONS : Retained products of conception. June 13. MEDICAL HISTORY : SURGICAL HISTORY : Tubal ligation. section. Two back surgeries. ENCOUNTER: Initial ACUITY: 2 months PAIN SCORE: 7/10 LOCATION: Bilateral pelvis MEASUREMENTS: UTERUS: 10.4 x 6.5 x 3.5 cm ENDOMETRIAL STRIPE: 4 mm RIGHT OVARY: 3.7 x 3.1 x 1.4 cm LEFT OVARY: 4.1 x 2.9 x 1.5 cm FINDINGS: UTERUS: The myometrium has homogeneous echotexture without mass. The endometrial stripe is homogeneous echot exture; no endometrial fluid.. RIGHT OVARY: Ovary contains no mass or significant cystic lesion. LEFT OVARY: Ovary contains no mass or significant cystic lesion. MISCELLANEOUS: No free fluid. CONCLUSION: Negative pelvic ultrasound. Endometrial stripe is normal thickness and has normal echotexture Huang Holliday MD on August 03, 2016 at 2:27 Board Certified Radiologist. This report was verified electronically.
[2016-08-03] MEDS ORDERED: IOHEXOL 350 MG/ML 10 ML VIAL (for RAD DIAG) IV ONE (03:05)
--- NOTE | 2016-08-03 03:21 | RADRPT ---
EXAM DATE/TIME: 08/03/2016 03:03 [facility] COMPARISON: No previous studies available for comparison. INDICATIONS : Right lower quadrant pain with vaginal bleeding since section 06/10. IV CONTRAST: 99 cc Omnipaque 350 (iohexol) IV ORAL CONTRAST: No oral contrast ingested. RADIATION DOSE: 10.26 CTDIvol (mGy) MEDICAL HISTORY : None SURGICAL HISTORY : Tubal ligation. section. ENCOUNTER: Initial ACUITY: 1 month PAIN SCALE: 4/10 LOCATION: Right lower quadrant TECHNIQUE: Volumetric scanning of the abdomen and pelvis was performed. Using automated exposure control and ad justment of the mA and/or kV according to patient size, radiation dose was kept as low as reasonably achievable to obtain optimal diagnostic quality images. DICOM format image data is available electro nically for review and comparison. FINDINGS: LOWER LUNGS: The visualized lower lungs are clear. LIVER: Homogeneous density without lesion. There is no dilation of the biliary tree. Contracted gallbladde r. No calcified gallstones. SPLEEN: Normal size without lesion. PANCREAS: Within normal limits. KIDNEYS: Normal in size and shape. There is no mass, stone or hydronephrosis. ADRENAL GLANDS: Within normal limits. VASCULAR: There is no aortic aneurysm. BOWEL/MESENTERY: The stomach, small bowel, and colon demonstrate no acute abnormality. There is no free intraperitone al air or fluid. ABDOMINAL WALL: Within normal limits. RETROPERITONEUM: There is no lymphadenopathy. BLADDER: No wall thickening or mass. REPRODUCTIVE: Post gravid uterus from . Anteverted uterus. No evidence of free fluid in the pelvis. The adnexal regions are unremarkable. INGUINAL: There is no lymphadenopathy or hernia. MUSCULOSKELETAL: Within normal limits for patient age. CONCLUSION: Acute findings. No evidence of free fluid or free intraperitoneal gas. Huang Holliday MD on August 03, 2016 at 3:17 Board Certified Radiologist. This report was verified electronically.
[2016-08-03] MEDS ORDERED: EC-N500T PO (03:48)
[2016-08-03 06:03] LABS: CHLAMYDIA PCR NOT DETECTED (NOT DETECT); NEISSERIA PCR NOT DETECTED (NOT DETECT)
== END 2016-08-03 04:02 | disposition home or self-care (01) ==
LOC: NEPC 23:17
DX: N93.8 Other specified abnormal uterine and vaginal bleeding (principal); R21 Rash and other nonspecific skin eruption; F41.9 Anxiety disorder, unspecified
CPT/HCPCS: 74177; 76856; 80053; 81001; 83690; 84443; 84703; 85025; 85610; 85730; 87086; 87210; 87491; 87591; 96361; 96374; 96375; 99285; J1200; J1885; J7030; Q9967

== ENCOUNTER 2016-08-25 16:21 | Emergency (ER) | payer OTHER, MEDICAID ==
[~2016-08-25] VITALS: Ht 165.1 cm; Wt 75.0 kg
[~2016-08-25 16:21] MED LIST changes: +EC-N500T PO; +NICO14DI T-DERMAL; -PREN29TA PO
[2016-08-25 16:23] VITALS: BP 114/75; PULSE 111; RESP 16; TEMP 98.6; O2SAT 97
--- NOTE | 2016-08-25 16:39 | PD ---
HPI . right wrist and hand pain Chief Complaint: Injury Time Seen by Provider: 16:39 Travel History International Travel<30 days: No Contact w/Intl Traveler<30days: No Traveled to known affect area: No History of Present Illness HPI 26-year-old female here with complaints of right wrist and hand pain. Patient says she was seen at [facility] and told that there was not much they can do and that she would need to come to the emergency department over here to get further care of her hand injuries. Patient says that they perform some imaging, but they did not image her wrist or hand. She says she was told that she does not have any broken bones, but may have some tendon injury. She was told that she would need to follow-up at our hospital for further treatment. She is complaining of pain in her right hand rated as 7/10 that pulls and radiates up into the forearm. She is right-hand dominant. PFSH Past Medical History Hx Anticoagulant Therapy: No Anxiety: Yes Depression: Yes Cardiovascular Problems: No Chemotherapy: No Cerebrovascular Accident: No Diabetes: No Diminished Hearing: No Respiratory: No : 5 Para: 4 Miscarriage: 1 : 0 Tubal Ligation: Yes Past Surgical History Section: Yes (x4) Hysterectomy: No Social History Alcohol Use: No Tobacco Use: No (quit 06/10/2016. ) Substance Use: No Allergies-Medications (Allergen,Severity, Reaction): Coded Allergies: Flexeril (Verified Allergy, Intermediate, sob, 08/25/16) Latex (Verified Allergy, Intermediate, Rash, 08/25/16) Reported Meds & Prescriptions Reported Meds & Active Scripts Active Ibuprofen 800 Mg Tab 800 Mg PO TID Review of Systems General / Constitutional: No: Fever Eyes: No: Visual changes HENT: No: Headaches Cardiovascular: No: Chest Pain or Discomfort Respiratory: No: Shortness of Breath Gastrointestinal: No: Abdominal Pain Genitourinary: No: Dysuria Musculoskeletal: Positive: Pain (right hand pain) Skin: No Rash Neurologic: No: Weakness Psychiatric: No: Depression Endocrine: No: Polydipsia Hematologic/Lymphatic: No: Easy Bruising Physical Exam Narrative GENERAL: AAO x 3, no acute distress, Well-nourished, well-developed patient. SKIN: Warm and dry. No visible rashes. minimal ecchymosis to right distal radius and ulna, some ecchymosis over the proximal hand HEAD: Normocephalic and atraumatic. EYES: No scleral icterus. No injection or drainage. ENT: No nasal drainage noted. Mucous membranes pink. Airway patent. NECK: Supple, trachea midline. No JVD. CARDIOVASCULAR: Regular rate and rhythm without murmurs, gallops, or rubs. HR on exam 106 RESPIRATORY: Breath sounds equal bilaterally. No accessory muscle use. No rhonchi or rales. GASTROINTESTINAL: visual inspection normal EXTREMITIES: No cyanosis or edema. decreased ROM due to pain, cap refill normal , pulses radial and ulnar normal BACK: No obvious deformity. 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 Data Data Last Documented VS Vital Signs Date Time Temp Pulse Resp B/P Pulse Ox O2 Delivery O2 Flow Rate FiO2 08/25/16 16:43 15 99 Room Air 08/25/16 16:23 98.6 111 114/75 Orders Hand, Complete ([id number]) (08/25/16 16:42) Bharat Bandage (08/25/16 17:36) Support Splint (08/25/16 17:36) MDM Medical Decision Making Medical Screen Exam Complete: Yes Emergency Medical Condition: Yes Medical Record Reviewed: Yes Differential Diagnosis wrist sprain, hand fracture, tendon injury Narrative Course 26 yr old female here with c/o right wrist and hand pain. xray imaging ordered. Last Impressions Hand X-Ray 08/25/16 1642 Signed Impressions: Service Date/Time: Thursday, August 25, 2016 17:20 - CONCLUSION: Unremarkable examination of the right hand. Sachin Ferreira MD Discussed results with patient. I provided Bharat wrap and sling. I recommend f/u with PCP if pain persists past 7-10 days. Recommend RICE and ibuprofen. Diagnosis Primary Impression: Hand pain, right Referrals: [facility] Patient Instructions: General Instructions Additional Instructions: Please return to emergency department if your symptoms return or worsen. Follow up with your primary care provider. Take medications as prescribed. Rest the affected area as much as possible. Ice this area for 15-20 minutes at a time. You can do this every hour or as much as tolerated. Keep this area compressed (bharat bandage) as tolerated. Elevate this area. Use ibuprofen as needed for pain and inflammation. Med/Other Pt SpecificInfo: Prescription(s) given Scripts Ibuprofen 800 Mg Hap304 Mg PO TID #21 TAB Prov:Socorro Ba MD 08/25/16 Disposition: 01 DISCHARGE HOME Condition: Stable Shanice Ambrosio Aug 25, 2016 16:39
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
[2016-08-25] MEDS ORDERED: IBUP800T23 PO (17:37)
[2016-08-25 17:55] VITALS: BP 110/72; TEMP 97.8
== END 2016-08-25 17:55 | disposition home or self-care (01) ==
LOC: NEPK 16:21
DX: M25.531 Pain in right wrist (principal); M79.641 Pain in right hand; F41.9 Anxiety disorder, unspecified; F32.9 Major depressive disorder, single episode, unspecified; Z79.1 Long term (current) use of non-steroidal anti-inflammatories (NSAID); Z88.8 Allergy status to other drugs, medicaments and biological substances
CPT/HCPCS: 73130; 99283; L3908

== ENCOUNTER 2016-09-13 02:52 | Emergency (ER) | payer MEDICAID ==
[~2016-09-13] VITALS: Ht 165.1 cm; Wt 75.0 kg
[~2016-09-13 02:52] MED LIST changes: -EC-N500T PO; +IBUP800T23 PO; -NICO14DI T-DERMAL
[2016-09-13 02:58] VITALS: BP 126/71; PULSE 93; RESP 14; TEMP 98.2; O2SAT 98
[2016-09-13 03:00] VITALS: BP 122/66; PULSE 90; RESP 12; TEMP 98.4; O2SAT 97
[2016-09-13] MEDS ORDERED: MELO-1 PO (03:01)
[2016-09-13] MEDS ORDERED: HYDR-3133 PO (03:01)
[2016-09-13] MEDS ORDERED: BUTA1CAP5 PO (03:01)
[2016-09-13] MEDS ORDERED: TIZA4CAP3 PO (03:01)
[2016-09-13] MEDS ORDERED: SODIUM CHLORIDE 0.9% FLUSH 10 ML FLUSH IVF PRN (03:30)
[2016-09-13 03:47] LABS: AUTOMATED NEUTROPHIL # 3.7 TH/MM3 (1.8-7.7); BASOPHIL % 0.4 % (0.0-2.0); EOSINOPHIL # 0.2 TH/MM3 (0-0.4); EOSINOPHIL % 2.4 % (0.0-4.0); HEMO FLAGS DIFF FINAL; LYMPH % 38.2 % (9.0-44.0); LYMPHOCYTE # 2.6 TH/MM3 (1.0-4.8); MEAN CELL VOLUME 91.8 FL (80.0-100.0); MEAN CORPUSCULAR HEMOGLOBIN 32.1 PG (27.0-34.0); MONO % 4.9 % (0.0-8.0); NEUT % 54.1 % (16.0-70.0); PLATELET COUNT 141 TH/MM3 (150-450); RED BLOOD COUNT 4.14 MIL/MM3 (4.00-5.30); RED CELL DISTRIBUTION WIDTH 14.5 % (11.6-17.2); WHITE BLOOD COUNT 6.9 TH/MM3 (4.0-11.0)
[2016-09-13 03:49] LABS: AMPHETAMINE, URINE NEG (NEG); BARBITURATES, URINE POS (NEG); COCAINE, URINE NEG (NEG)
--- NOTE | 2016-09-13 03:55 | PD ---
HPI Chief Complaint: Seizure Time Seen by Provider: 03:18 Travel History International Travel<30 days: No Contact w/Intl Traveler<30days: No Traveled to known affect area: No History of Present Illness HPI Patient is a 26-year-old female with history of chronic migraine headache who presents the emergency department after a love abnormal behavior, question seizure. Patient states that she was working in a warm garage on the vehicle all day. She tried to maintain hydration, but states that she has been having some cramping. Feels generally weak and fatigued. Her chronic daily headache seems to be worse than normal today. She took her Fioricet with some improvement. While at home this evening patient's significant other states that she had a spell of shaking. Patient did not lose consciousness during this timeframe. She denies any tongue biting, urinary incontinence. She however does not entirely remember the episode. She does not have a history of seizures. She denies any chest pain or palpitations. PFSH Past Medical History Hx Anticoagulant Therapy: No Anxiety: Yes Depression: Yes Cardiovascular Problems: No Chemotherapy: No Cerebrovascular Accident: No Diabetes: No Diminished Hearing: No Psychiatric: Yes Respiratory: No ?: Not LMP: 09/01/16 : 5 Para: 4 Miscarriage: 1 : 0 Tubal Ligation: Yes Past Surgical History Section: Yes (x4) Hysterectomy: No Social History Alcohol Use: Yes (rare) Tobacco Use: Yes (1/2 ppd ) Substance Use: No (PT DENIES ) Allergies-Medications (Allergen,Severity, Reaction): Coded Allergies: Flexeril (Verified Allergy, Intermediate, sob, 09/13/16) Latex (Verified Allergy, Intermediate, Rash, 09/13/16) Reported Meds & Prescriptions Reported Meds & Active Scripts Active Ibuprofen 800 Mg Tab 800 Mg PO TID Reported Hydroxyzine HCl 25 Mg Tab 25 Mg PO QID PRN Meloxicam 15 Mg Tab 15 Mg PO DAILY Tizanidine (Tizanidine HCl) 4 Mg Cap 4 Mg PO HS Pvgsctmbob-Jgdvbxpfedqeg-Axuimiit 50-300-40 Mg Cap 1 Cap PO Q4H PRN Do not exceed 6 capsules/day. Review of Systems Except as stated in HPI: all other systems reviewed are Neg Physical Exam Narrative GENERAL: Adult female appearing older than stated age in no acute distress SKIN: Focused skin assessment warm/dry. HEAD: Atraumatic. Normocephalic. EYES: Pupils equal and round. No scleral icterus. No injection or drainage. ENT: No nasal bleeding or discharge. Mucous membranes pink and moist. Poor dentition NECK: Supple without nuchal rigidity CARDIOVASCULAR: Regular rate and rhythm. No murmur appreciated. RESPIRATORY: No accessory muscle use. Clear to auscultation. Breath sounds equal bilaterally. GASTROINTESTINAL: Abdomen soft, non-tender, nondistended. Obese MUSCULOSKELETAL: No obvious deformities. No edema. NEUROLOGICAL: Awake and alert. No obvious cranial nerve deficits. Motor grossly within normal limits. Normal speech. PSYCHIATRIC: Appropriate mood and affect; insight and judgment normal. Data Data Last Documented VS Vital Signs Date Time Temp Pulse Resp B/P Pulse Ox O2 Delivery O2 Flow Rate FiO2 09/13/16 03:00 93 14 97 Room Air 09/13/16 03:00 98.4 122/66 Orders Complete Blood Count With Diff (09/13/16 03:18) Basic Metabolic Panel (Bmp) (09/13/16 03:18) Alcohol (Ethanol) (09/13/16 03:18) Drug Screen, Random Urine (09/13/16 03:18) Electrocardiogram (09/13/16 ) Ct Brain W/O Iv Contrast(Rout) (09/13/16 ) Ecg Monitoring (09/13/16 03:18) Iv Access Insert/Monitor (09/13/16 03:18) Oximetry (09/13/16 03:18) Sodium Chloride 0.9% Flush (Ns Flush) (09/13/16 03:30) Creatine Kinase (Cpk) (09/13/16 03:18) Ketorolac Inj (Toradol Inj) (09/13/16 04:00) Labs Laboratory Tests Test 09/13/16 09/13/16 03:15 03:24 Urine Opiates Screen NEG Urine Barbiturates Screen POS Urine Amphetamines Screen NEG Urine Benzodiazepines Screen NEG Urine Cocaine Screen NEG Urine Cannabinoids Screen NEG White Blood Count 6.9 TH/MM3 Red Blood Count 4.14 MIL/MM3 Hemoglobin 13.3 GM/DL Hematocrit 38.0 % Mean Corpuscular Volume 91.8 FL Mean Corpuscular Hemoglobin 32.1 PG Mean Corpuscular Hemoglobin 35.0 % Concent Red Cell Distribution Width 14.5 % Platelet Count 141 TH/MM3 Mean Platelet Volume 10.5 FL Neutrophils (%) (Auto) 54.1 % Lymphocytes (%) (Auto) 38.2 % Monocytes (%) (Auto) 4.9 % Eosinophils (%) (Auto) 2.4 % Basophils (%) (Auto) 0.4 % Neutrophils # (Auto) 3.7 TH/MM3 Lymphocytes # (Auto) 2.6 TH/MM3 Monocytes # (Auto) 0.3 TH/MM3 Eosinophils # (Auto) 0.2 TH/MM3 Basophils # (Auto) 0.0 TH/MM3 CBC Comment DIFF FINAL Differential Comment Sodium Level 143 MEQ/L Potassium Level 3.8 MEQ/L Chloride Level 111 MEQ/L Carbon Dioxide Level 22.8 MEQ/L Anion Gap 9 MEQ/L Blood Urea Nitrogen 11 MG/DL Creatinine 0.66 MG/DL Estimat Glomerular Filtration 107 ML/MIN Rate Random Glucose 105 MG/DL Calcium Level 8.7 MG/DL Total Creatine Kinase 43 U/L Ethyl Alcohol Level 36 MG/DL MDM Medical Decision Making Medical Screen Exam Complete: Yes Emergency Medical Condition: Yes Medical Record Reviewed: Yes Differential Diagnosis 26-year-old female with history of migraine headache here with complaint of all of abnormal behavior, shaking, questionable seizure. Differential includes migraine headache, tension headache, cluster headache, seizure, arrhythmia, pseudoseizure, substance abuse. Narrative Course Patient placed on monitor, IV established and blood obtained. Given Toradol for headache. Twelve-lead EKG obtained that shows sinus rhythm without notable ST abnormalities, normal intervals. No evidence of prolonged QT, WPW, Brugada. CBC, BMP, CPK, blood alcohol level, urine drug screen positive for barbiturates. Patient does take Fioricet for headaches at home which would prompt this result. CT of the brain showed no acute abnormalities. Patient felt improved after Toradol will be discharged to home. Diagnosis Primary Impression: Migraine headache Qualified Code: G43.009 - Migraine without aura and without status migrainosus , not intractable Referrals: Primary Care Physician as needed Additional Instructions: Continue home medications for migraine. Follow-up with primary and/or neurologist if headaches persist for further management. Med/Other Pt SpecificInfo: No Change to Meds Disposition: 01 DISCHARGE HOME Condition: Stable Ernestine Watkins MD Sep 13, 2016 03:55
[2016-09-13 03:56] LABS: BICARBONATE 22.8 MEQ/L (21.0-32.0); POTASSIUM 3.8 MEQ/L (3.5-5.1)
[2016-09-13] MEDS ORDERED: KETOROLAC TROMETHAMINE 30 MG/ML (IVP) VIAL IV PUSH ONE (04:00)
--- NOTE | 2016-09-13 04:06 | RADRPT ---
EXAM DATE/TIME: 09/13/2016 03:46 [facility] COMPARISON: No previous studies available for comparison. INDICATIONS : Cephalgia. RADIATION DOSE: 29.34 CTDIvol (mGy) MEDICAL HISTORY : None SURGICAL HISTORY : Tubal ligation. section. ENCOUNTER: Initial ACUITY: 1 day PAIN SCALE: 10/10 LOCATION: cranial TECHNIQUE: Multiple contiguous axial images were obtained of the head. Using automated exposure control and adj ustment of the mA and/or kV according to patient size, radiation dose was kept as low as reasonably a chievable to obtain optimal diagnostic quality images. DICOM format image data is available electro nically for review and comparison. FINDINGS: CEREBRUM: The ventricles are normal for age. No evidence of midline shift, mass lesion, hemorrhage or acute in farction. No extra-axial fluid collections are seen. POSTERIOR FOSSA: The cerebellum and brainstem are intact. The 4th ventricle is midline. The cerebellopontine angle i s unremarkable. EXTRACRANIAL: The visualized portion of the orbits is intact. SKULL: The calvaria is intact. No evidence of skull fracture. CONCLUSION: 1. No evidence of acute intracranial pathology. No masses are identified. Kobi Pa MD on September 13, 2016 at 4:04 Board Certified Radiologist. This report was verified electronically.
--- NOTE | 2016-09-13 17:42 | EKG ---
Date Performed: 09/13/2016 Time Performed: 03:06:47 PTAGE: 26 years EKG: Sinus rhythm NORMAL ECG Compared to PREVIOUS TRACING , nonspecific T wave changes are now present. Heart rate has slowed sig nificantly. PREVIOUS TRACIN04/26/2016 01.29 DOCTOR: Kiran Stock Interpretating Date/Time 09/13/2016 17:40:43
== END 2016-09-13 04:50 | disposition home or self-care (01) ==
LOC: NEPE 02:52
DX: G43.009 Migraine without aura, not intractable, without status migrainosus (principal); F17.210 Nicotine dependence, cigarettes, uncomplicated
CPT/HCPCS: 70450; 80048; 80307; 82550; 85025; 93005; 96374; 99285; J1885

== ENCOUNTER 2017-05-12 04:48 | Observation (INO) | payer MEDICAID ==
[~2017-05-12] VITALS: Ht 170.2 cm; Wt 82.1 kg
[2017-05-12] VITALS (11 sets, daily range): BP systolic 101–112; BP diastolic 59–75; PULSE 78–96; RESP 14–20; TEMP 96.9–98.7; O2SAT 96–100
[~2017-05-12 04:48] MED LIST changes: +BUTA1CAP5 PO; +HYDR-3133 PO; +IBUP1TAB7 PO; -IBUP800T23 PO; +MELO15TA20 PO; +TIZA4CAP3 PO
[2017-05-12] MEDS ORDERED: SODIUM CHLOR 0.9% 1000 ML INJ 1,000 ML IV ONE (05:07)
[2017-05-12] MEDS ORDERED: ONDANSETRON HCL 4 MG/2 ML VIAL ONE (05:18)
--- NOTE | 2017-05-12 05:18 | PD ---
HPI Chief Complaint: Stroke Alert Time Seen by Provider: 05:07 Travel History International Travel<30 days: No Contact w/Intl Traveler<30days: No Traveled to known affect area: No History of Present Illness HPI 27-year-old female presents to the emergency department by private transportation the care of her sister for evaluation of new onset visual disturbance with left upper extremity weakness. 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 Patient states that she initially noticed tingling in her left hand and then visual disturbance unable to see in her peripheral pham. Patient states that as she was working with her sister to deliver the papers she realized she could not throw the papers that she typically with her left upper extremity. Patient is right-handed. Patient denies headache loss of vision confusion difficulty with her speech right upper extremity or right lower extremity numbness tingling or weakness but upon arrival to the emergency department felt as if her left lower extremity was mildly weak. Patient has chronic back pain. Patient here denies any history of hypertension TIA CVA or migraine. Patient' s had no recent injury or fall. Patient denies any gradual development of balance disturbance or weakness. Patient states symptoms began abruptly this morning. Patient states she takes no medications on a routine basis. Patient takes no hormone replacement therapy or control pills. Patient does smoke cigarettes and uses E cigarettes. PFSH Past Medical History Narrative Medical anxiety/depression; c-sxn; tobacco, e cig alcohol: nursing notes reviewed ( review of medical records indicates history of migraines) Hx Anticoagulant Therapy: No Anxiety: Yes Depression: Yes Cardiovascular Problems: No Chemotherapy: No Cerebrovascular Accident: No Diabetes: No Diminished Hearing: No Psychiatric: Yes Respiratory: No : 5 Para: 4 Miscarriage: 1 : 0 Tubal Ligation: Yes Past Surgical History Section: Yes (x4) Hysterectomy: No Social History Alcohol Use: Yes (rare) Tobacco Use: Yes (1/2 ppd ) Substance Use: No (PT DENIES ) Allergies-Medications (Allergen,Severity, Reaction): Coded Allergies: cyclobenzaprine (Unverified Allergy, Intermediate, sob, 09/22/16) latex (Unverified Allergy, Intermediate, Rash, 09/22/16) Reported Meds & Prescriptions Reported Meds & Active Scripts Active Ibuprofen 800 Mg Tab 800 Mg PO TID Reported Hydroxyzine HCl 25 Mg Tab 25 Mg PO QID PRN Meloxicam 15 Mg Tab 15 Mg PO DAILY Tizanidine (Tizanidine HCl) 4 Mg Cap 4 Mg PO HS Rryueiksng-Hggrlhfathrzf-Gniuddjr 50-300-40 Mg Cap 1 Cap PO Q4H PRN Do not exceed 6 capsules/day. Review of Systems Except as stated in HPI: all other systems reviewed are Neg General / Constitutional: No: Fever, Chills Eyes: Positive: Blurred Vision, No: Diploplia, Photophobia HENT: No: Headaches, Neck Pain Cardiovascular: No: Chest Pain or Discomfort, Palpitations Respiratory: No: Shortness of Breath Gastrointestinal: Positive: Nausea, No: Vomiting, Abdominal Pain Musculoskeletal: Positive: Weakness Skin: No Rash Neurologic: Positive: Weakness, Paresthesia Psychiatric: Positive: Anxiety Hematologic/Lymphatic: No: Lymph Node Enlargement Physical Exam Narrative GENERAL: Well-developed well-nourished female in no acute distress no respiratory distress GCS 15 SKIN: Warm and dry. HEAD: Atraumatic. Normocephalic. EYES: Pupils equal and round. Extraocular muscles intact. No scleral icterus. No injection or drainage. ENT: No nasal bleeding or discharge. Mucous membranes pink and moist. Airway is patent. NECK: Trachea midline. No JVD. CARDIOVASCULAR: Regular rate and rhythm. RESPIRATORY: No accessory muscle use. Clear to auscultation. Breath sounds equal bilaterally. GASTROINTESTINAL: Abdomen soft, non-tender, nondistended. Hepatic and splenic margins not palpable. MUSCULOSKELETAL: Extremities without clubbing, cyanosis, or edema. No obvious deformities. NEUROLOGICAL: Awake and alert. No obvious cranial nerve deficits. Motor grossly within normal limits. 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 Patient is unable to perform pronator drift as unable to lift her left upper extremity. Patient has mild limb ataxia with the left lower extremity. Normal speech. PSYCHIATRIC: Appropriate mood and affect; insight and judgment normal. Data Data Last Documented VS Vital Signs Date Time Temp Pulse Resp B/P (MAP) Pulse Ox O2 Delivery O2 Flow Rate FiO2 05/12/17 07:00 96 20 101/62 (75) 98 05/12/17 06:01 98.7 4/4/18 06:01 Room Air 05/12/17 05:00 21 Orders Orders Cath For Specimen (05/12/17 05:07) Neuro Checks Q2HX12,Q4H (05/12/17 05:07) Nursing Bedside Swallow Assess .ONCE (05/12/17 05:07) Activity Bed Rest (05/12/17 05:07) Prothrombin Time / Inr (Pt) (05/12/17 05:07) Act Partial Throm Time (Ptt) (05/12/17 05:07) Complete Blood Count With Diff (05/12/17 05:07) Basic Metabolic Panel (Bmp) (05/12/17 05:07) Fibrinogen (05/12/17 05:07) Creatine Kinase (Cpk) (05/12/17 05:07) Troponin I (05/12/17 05:07) Ua Includes Microscopic (05/12/17 05:07) Drug Screen, Random Urine (05/12/17 05:07) Type And Screen (05/12/17 05:07) Ct Brain W/O Iv Contrast(Rout) (05/12/17 ) Cta Brain W Iv Contrast W 3d (05/12/17 05:07) Cta Neck W Iv Contrast W 3d (05/12/17 05:07) Electrocardiogram (05/12/17 ) Beta Hcg (Quant/Titer) (05/12/17 05:07) Consult Neurology (05/12/17 05:07) Sodium Chlor 0.9% 1000 Ml Inj (Ns 1000 M (05/12/17 05:07) Blood Glucose (05/12/17 05:07) Ecg Monitoring (05/12/17 05:07) Iv Access Insert/Monitor (05/12/17 05:07) NPO (05/12/17 05:07) Oximetry (05/12/17 05:07) Resp Oxygen Nc Stroke (05/12/17 ) Ondansetron Inj (Zofran Inj) (05/12/17 05:30) Ondansetron Inj (Zofran Inj) (05/12/17 05:18) Sodium Chlor 0.9% 1000 Ml Inj (Ns 1000 M (05/12/17 05:30) Mri Brain W/O Contrast (05/12/17 ) (Hub Use Only)Inp Phy Cons/Ref (05/12/17 ) Urine Culture (05/12/17 05:50) Iodixanol 320 Inj (Rad Ct) (Visipaque 32 (05/12/17 05:30) Admit Order (Ed Use Only) (05/12/17 ) Business Process Expert / Telemetry KI.Q8H (05/12/17 07:19) Activity Bed Rest (05/12/17 07:19) Notify Dr: Other (05/12/17 07:19) Labs Laboratory Tests Test 05/12/17 04:55 05/12/17 05:50 White Blood Count 10.0 TH/MM3 Red Blood Count 4.54 MIL/MM3 Hemoglobin 14.0 GM/DL Hematocrit 42.5 % Mean Corpuscular Volume 93.5 FL Mean Corpuscular Hemoglobin 30.8 PG Mean Corpuscular Hemoglobin Concent 32.9 % Red Cell Distribution Width 12.5 % Platelet Count 136 TH/MM3 Mean Platelet Volume 10.6 FL Neutrophils (%) (Auto) 50.5 % Lymphocytes (%) (Auto) 41.0 % Monocytes (%) (Auto) 5.9 % Eosinophils (%) (Auto) 2.4 % Basophils (%) (Auto) 0.2 % Neutrophils # (Auto) 5.1 TH/MM3 Lymphocytes # (Auto) 4.1 TH/MM3 Monocytes # (Auto) 0.6 TH/MM3 Eosinophils # (Auto) 0.2 TH/MM3 Basophils # (Auto) 0.0 TH/MM3 CBC Comment DIFF FINAL Differential Comment Prothrombin Time 10.0 SEC Prothromb Time International Ratio 1.0 RATIO Activated Partial Thromboplast Time 26.9 SEC Fibrinogen 413 mg/dL Blood Urea Nitrogen 12 MG/DL Creatinine 0.66 MG/DL Random Glucose 111 MG/DL Calcium Level 9.2 MG/DL Sodium Level 140 MEQ/L Potassium Level 3.7 MEQ/L Chloride Level 109 MEQ/L Carbon Dioxide Level 23.5 MEQ/L Anion Gap 8 MEQ/L Estimat Glomerular Filtration Rate 107 ML/MIN Total Creatine Kinase 35 U/L Troponin I LESS THAN 0.02 NG/ML Human Chorionic Gonadotropin, Quant LESS THAN 1 MIU/ML Urine Collection Type CATH Urine Color YELLOW Urine Turbidity CLEAR Urine pH 6.0 Urine Specific [place] 1.020 Urine Protein NEG mg/dL Urine Glucose (UA) NEG mg/dL Urine Ketones NEG mg/dL Urine Occult Blood NEG Urine Nitrite NEG Urine Bilirubin NEG Urine Urobilinogen 0.2 MG/DL Urine Leukocyte Esterase NEG Urine WBC 6-8 /hpf Urine Squamous Epithelial Cells 0-5 /hpf Urine Trichomonas OCC Microscopic Urinalysis Comment CULTURE INDICATED Urine Opiates Screen NEG Urine Barbiturates Screen NEG Urine Amphetamines Screen NEG Urine Benzodiazepines Screen NEG Urine Cocaine Screen NEG Urine Cannabinoids Screen NEG MDM Medical Decision Making Medical Screen Exam Complete: Yes Emergency Medical Condition: Yes Medical Record Reviewed: Yes Interpretation(s) EKG: Normal sinus rhythm rate [address] elevation injury pattern or ectopy noted Quantitative hCG less than 1, negative Urine drug screen negative Troponin I less than 0.02, not elevated Last Impressions Neck CTA 05/12/17 0507 Signed Impressions: Service Date/Time: Friday, May 12, 2017 05:26 - CONCLUSION: Negative Gagandeep Jason MD Head CTA 05/12/17 0507 Signed Impressions: Service Date/Time: Friday, May 12, 2017 05:26 - CONCLUSION: Negative study Gagandeep Jason MD Head CT 05/12/17 0000 Signed Impressions: Service Date/Time: Friday, May 12, 2017 05:06 - CONCLUSION: No acute intracranial findings. Sinus disease Gagandeep Jason MD CBC & BMP Diagram 05/12/17 04:55 Calcium Level 9.2 Vital Signs Date Time Temp Pulse Resp B/P (MAP) Pulse Ox O2 Delivery O2 Flow Rate FiO2 05/12/17 07:00 96 20 101/62 (75) 98 05/12/17 06:30 78 18 106/65 (79) 99 05/12/17 06:01 98.7 79 20 111/75 (87) 100 05/12/17 06:01 98 Room Air 05/12/17 06:00 88 18 111/75 (87) 99 05/12/17 05:40 78 20 100 Room Air 05/12/17 05:30 80 20 112/70 (84) 99 05/12/17 05:01 98.3 86 18 107/74 (85) 96 05/12/17 05:00 98 21 05/12/17 05:00 82 20 111/69 (83) 99 05/12/17 05:00 98 21 Differential Diagnosis CVA, TIA, migraine variant Narrative Course Patient placed immediately on stretcher nurse notes that patient was able to transfer from wheelchair to stretcher independently with weightbearing; patient placed supine and placed on compliance monitor found to be in sinus rhythm stat glucose ordered and neurologic exam remarkable for weakness of the left upper extremity left lower extremity with left lower extremity limb ataxia inability to perform pronator drift with the left upper extremity and visual field deficit primarily affecting the right eye. Stroke alert called and patient taken emergently to CT scanner. Patient's case discussed with on-call neurologist. Aware that awaiting for sister who is with the patient at time of onset of symptoms has not arrived to the emergency department as she is taking care of children in the parking lot. 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 And is also at bedside and reports that patient has been having symptoms since at least 7 PM last evening. Also reports that patient does have history of migraines. Older sister on phone with Irasema has identified patient has history of migraines as well as hepatitis C. Patient and CT denies having symptoms yesterday evening around 7 or earlier states she believes her symptoms began around 2 AM this morning and denies history of migraine headaches. Review of medical record indicates patient was seen as recently as September 2016 for migraine headache at this facility. Sister believes that the patient has been mildly confused about onset of symptoms since yesterday when she noticed patient complaining of nausea and not feeling well at [address] brain noncontrast reveals no acute process per reading radiologist Dr. Jason ; CT results conveyed to on-call neurologist Dr. Cramer. Dr. Cramer has been updated regarding family members information. Family members have been with the patient since yesterday at 11 AM. In view of patient having variable time of onset variable history and concern for onset of symptoms since 7 PM Wednesday evening she at this time does not qualify as a candidate for TPA. @ 5 :20 AM with family at bedside the change in her history and presentation and duration of symptoms has been discussed in detail with the patient who has already told the nurse at bedside that she does not want to receive any thrombolytic agents. Thrombolytic agents and patient's presentation was again discussed with the patient and family and patient does not want abdominal occasions but she is also aware that she is not a candidate for thrombolytics at this time. Patient will be admitted to medicine service with consult to neurology stat MRI of the brain has been ordered. CT brain noncontrast reveals no acute process per reading radiologist; CTA of brain is normal per reading radiologist CTA neck is normal per reading radiologist Critical Care Narrative Aggregate critical care time was 35 minutes. Time to perform other separately billable procedures was not included in the critical care time. My time did not include minutes spent treating any other patients simultaneously or on activities that did not directly contribute to the patient's treatment. The services I provided to this patient were to treat and/or prevent clinically significant deterioration that could result in: Massive embolic stroke, intracranial hemorrhage, I provided critical care services requiring my management, as noted below: Chart data review, documentation time, medication orders and management, vital sign assessments/reviewing monitor data, ordering and reviewing lab tests, ordering and interpreting/reviewing x-rays and diagnostic studies, care of the patient and discussion of the patient with the admitting physicians. Physician Communication Physician Communication 500 discussed with neurologist, Dr Gallardo --give tpa; CT negative per Dr Jason at 5:20; Dr Cramer notified of variable onset of symptom per two reliable family members at the bedside and CT results --NO tpa Diagnosis Primary Impression: CVA (cerebral vascular accident) Additional Impression: H/O atypical migraine Omayra Allen MD May 12, 2017 05:18
--- NOTE | 2017-05-12 05:27 | RADRPT ---
EXAM DATE/TIME: 05/12/2017 05:06 [facility] COMPARISON: No previous studies available for comparison. INDICATIONS : Stroke alert. Left side weakness. RADIATION DOSE: 60.88 CTDIvol (mGy) This report was called by Casie Allen at 523 MEDICAL HISTORY : Non-responsive. SURGICAL HISTORY : Non-responsive. ENCOUNTER: Initial ACUITY: 1 day PAIN SCALE: Non-responsive LOCATION: Left TECHNIQUE: Multiple contiguous axial images were obtained of the head. Using automated exposure control and adj ustment of the mA and/or kV according to patient size, radiation dose was kept as low as reasonably a chievable to obtain optimal diagnostic quality images. DICOM format image data is available electro nically for review and comparison. FINDINGS: CEREBRUM: The ventricles are normal for age. No evidence of midline shift, mass lesion, hemorrhage or acute in farction. No extra-axial fluid collections are seen. POSTERIOR FOSSA: The cerebellum and brainstem are intact. The 4th ventricle is midline. The cerebellopontine angle i s unremarkable. EXTRACRANIAL: The visualized portion of the orbits is intact. Moderate mucosal disease is visualized ethmoid and ri ght maxillary sinuses SKULL: The calvaria is intact. No evidence of skull fracture. CONCLUSION: No acute intracranial findings. Sinus disease Gagandeep Jason MD on May 12, 2017 at 5:23 Board Certified Radiologist. This report was verified electronically.
[2017-05-12 05:28] LABS: CHLORIDE 109 MEQ/L (98-107); SODIUM (NA) 140 MEQ/L (136-145)
[2017-05-12 05:29] LABS: AUTOMATED NEUTROPHIL # 5.1 TH/MM3 (1.8-7.7); BASOPHIL % 0.2 % (0.0-2.0); EOSINOPHIL # 0.2 TH/MM3 (0-0.4); EOSINOPHIL % 2.4 % (0.0-4.0); HEMATOCRIT 42.5 % (35.0-46.0); LYMPHOCYTE # 4.1 TH/MM3 (1.0-4.8); MEAN CELL VOLUME 93.5 FL (80.0-100.0); MEAN CORPUSCULAR HEMOGLOBIN 30.8 PG (27.0-34.0); MEAN CORPUSCULAR HGB CONC 32.9 % (32.0-36.0); MEAN PLATELET VOLUME 10.6 FL (7.0-11.0); MONO % 5.9 % (0.0-8.0); MONOCYTE # 0.6 TH/MM3 (0-0.9); NEUT % 50.5 % (16.0-70.0); PLATELET COUNT 136 TH/MM3 (150-450); RED BLOOD COUNT 4.54 MIL/MM3 (4.00-5.30); RED CELL DISTRIBUTION WIDTH 12.5 % (11.6-17.2)
[2017-05-12] MEDS ORDERED: SODIUM CHLOR 0.9% 1000 ML INJ 1,000 ML IV SCH ×2 (05:30→08:00)
[2017-05-12] MEDS ORDERED: IODIXANOL 320 MG/ML 10 ML VIAL (for Rad CT) IVCONTRAST ONE (05:30)
[2017-05-12] MEDS ORDERED: ONDANSETRON HCL 4 MG/2 ML VIAL IV PUSH ONE (05:30)
[2017-05-12 05:31] LABS: BICARBONATE 23.5 MEQ/L (21.0-32.0); BLOOD UREA NITROGEN 12 MG/DL (7-18); CALCIUM 9.2 MG/DL (8.5-10.1); GLUCOSE,RANDOM 111 MG/DL (74-106)
[2017-05-12 05:35] LABS: CREATININE 0.66 MG/DL (0.50-1.00); GLOMERULAR FILTRATION RATE 107 ML/MIN (>89)
[2017-05-12 05:40] LABS: TROPONIN I LESS THAN 0.02 NG/ML (0.02-0.05)
[2017-05-12 06:08] LABS: BILIRUBIN, URINE NEG (NEG); BLOOD, URINE NEG (NEG); GLUCOSE,URINE NEG (NEG); KETONE, URINE NEG (NEG); NITRITE,URINE NEG (NEG); URINE COLOR YELLOW (YELLW/STRAW); URINE LEUKOCYTE ESTERASE NEG (NEG)
--- NOTE | 2017-05-12 06:08 | RADRPT ---
EXAM DATE/TIME: 05/12/2017 05:26 [facility] COMPARISON: No previous studies available for comparison. INDICATIONS : Stroke alert. Left side weakness. IV CONTRAST: 100 cc Visipaque (iodixanol) IV ; Cumulative dose for multiple exams. RADIATION DOSE: 42.28 CTDIvol (mGy) ; Combined studies MEDICAL HISTORY : Non-responsive. SURGICAL HISTORY : Non-responsive. ENCOUNTER: Initial ACUITY: 1 day PAIN SCALE: LOCATION: Left TECHNIQUE: Volumetric scanning was performed using a multi-row detector CT scanner. The data was post processed with a variety of visualization algorithms including full volume maximum intensity projection, multi -planar sliding thin slab reformation, curved planar reformation, and surface rendering techniques. Using automated exposure control and adjustment of the mA and/or kV according to patient size, radiat ion dose was kept as low as reasonably achievable to obtain optimal diagnostic quality images. DICO M format image data is available electronically for review and comparison. FINDINGS: There is excellent visualization of the major intracranial arteries out to the second-order branch ve ssels. There is no evidence for aneurysm, vessel truncation or stenosis, and no evidence for vascula r malformation. CONCLUSION: Negative study Gagandeep Jason MD on May 12, 2017 at 6:04 Board Certified Radiologist. This report was verified electronically.
[2017-05-12 06:17] LABS: SQUAMOUS EPITHELIAL CELL URINE 0-5 /hpf (0-5); TRICHOMONAS, URINE OCC
--- NOTE | 2017-05-12 06:57 | RADRPT ---
EXAM DATE/TIME: 05/12/2017 05:26 [facility] COMPARISON: No previous studies available for comparison. INDICATIONS : Stroke alert. Left side weakness. IV CONTRAST: 100 cc Visipaque (iodixanol) IV ; Cumulative dose for multiple exams. RADIATION DOSE: 42.28 CTDIvol (mGy) ; Combined studies MEDICAL HISTORY : Non-responsive. SURGICAL HISTORY : Non-responsive. ENCOUNTER: Initial ACUITY: 1 day PAIN SCALE: Non-responsive LOCATION: Left neck Elevated flow velocities and ICA/CCA ratios have been found to correlate with increased degrees of vessel stenosis, calculated as percentage of diameter relative to a normal segment of distal ICA/CCA. TECHNIQUE: Volumetric scanning was performed using a multirow detector CT scanner. The data was post processed with a variety of visualization algorithms including full-volume maximum intensity projection, multip lanar sliding thin-slab reformation, curved-planar reformation, and surface-rendering techniques. Us ing automated exposure control and adjustment of the mA and/or kV according to patient size, radiatio n dose was kept as low as reasonably achievable to obtain optimal diagnostic quality images. DICOM f ormat image data is available electronically for review and comparison. FINDINGS: AORTIC ARCH: Truncus arch anatomy. No evidence of ostial narrowing. RIGHT CAROTID: The common carotid artery is intact. The carotid bulb has a normal configuration without ulceration o r narrowing. The internal carotid artery lumen is smooth without stenosis. The external carotid olivia ry is intact. LEFT CAROTID: The common carotid artery is intact. The carotid bulb has a normal configuration without ulceration or narrowing. The internal carotid artery lumen is smooth without stenosis. The external carotid ar melvin is intact. VERTEBRALS: The vertebral arteries are patent bilaterally, left side slightly dominant. No stenotic lesions are seen. CONCLUSION: Negative Gagandeep Jason MD on May 12, 2017 at 6:53 Board Certified Radiologist. This report was verified electronically.
[2017-05-12] MEDS ORDERED: ACETAMINOPHEN 325 MG TAB PO PRN (07:30)
[2017-05-12] MEDS ORDERED: SENNOSIDES 8.6 MG TAB PO PRN (07:30)
[2017-05-12] MEDS ORDERED: BISACODYL 10 MG SUPP RECTAL PRN (07:30)
[2017-05-12] MEDS ORDERED: LACTULOSE SYRUP 20 GM/30 ML CUP PO PRN (07:30)
[2017-05-12] MEDS ORDERED: MAGNESIUM HYDROXIDE SUSP 30 ML CUP PO PRN (07:30)
[2017-05-12] MEDS ORDERED: NALOXONE HCL 0.4 MG/ML AMP IV PUSH PRN (07:30)
[2017-05-12] MEDS ORDERED: SODIUM CHLORIDE 0.9% FLUSH 10 ML FLUSH IV FLUSH PRN (07:30)
[2017-05-12] MEDS ORDERED: ONDANSETRON HCL 4 MG/2 ML VIAL IVP PRN (07:30)
--- NOTE | 2017-05-12 07:30 | EKG ---
Date Performed: 05/12/2017 Time Performed: 06:10:30 PTAGE: 27 years EKG: Sinus rhythm WITH SINUS ARRHYTHMIA LOW QRS VOLTAGE IN EXTREMITY LEADS BORDERLINE ECG PREVIOUS TRACING : 09/13/2016 03.06 DOCTOR: Sachin Crowley Interpretating Date/Time 05/12/2017 07:30:21
[2017-05-12] MEDS ORDERED: ASPIRIN 300 MG SUPP RECTAL ONE (08:15)
[2017-05-12] MEDS ORDERED: SODIUM CHLORIDE 0.9% FLUSH 10 ML FLUSH IV FLUSH SCH (09:00)
[2017-05-12] MEDS ORDERED: DOCUSATE SODIUM 50 MG/SENNA 8.6 MG TAB PO SCH (09:00)
--- NOTE | 2017-05-12 10:09 | RADRPT ---
EXAM DATE/TIME: 05/12/2017 08:47 [facility] COMPARISON: No previous studies available for comparison. INDICATIONS : Left sided weakness. Vision changes. CVA. MEDICAL HISTORY : None. SURGICAL HISTORY : Discectomy, lumbar. section. Tubal ligation. ENCOUNTER: Subsequent ACUITY: 1 day PAIN SCORE: 0/10 LOCATION: head. Please note a normal MRA of the brain does not entirely exclude the possibility of a small aneurysm, nor the possibility of distal intracranial vessel disease. TECHNIQUE: 3D time of flight MRA was performed. Source images, multiplanar STS MIP, and 3D volume MIP reconstru ctions were reviewed. FINDINGS: There is excellent visualization of the major intracranial arteries out to the second-order branch ve ssels. There is no evidence for aneurysm, vessel truncation or stenosis, and no evidence for vascula r malformation. CONCLUSION: Negative exam. Intracranial vessels are all patent without aneurysmal disease. Coy Fowler MD on May 12, 2017 at 10:05 Board Certified Radiologist. This report was verified electronically.
--- NOTE | 2017-05-12 10:12 | RADRPT ---
EXAM DATE/TIME: 05/12/2017 08:47 [facility] COMPARISON: No previous studies available for comparison. INDICATIONS : Left sided weakness. Vision changes. CVA. MEDICAL HISTORY : None. SURGICAL HISTORY : Discectomy, lumbar. section. Tubal ligation. ENCOUNTER: Subsequent ACUITY: 1 day PAIN SCORE: 0/10 LOCATION: head. TECHNIQUE: Multiplanar, multisequence MRI of the brain was performed without contrast. FINDINGS: Mild degradation of images due to motion. CEREBRUM: The ventricles are normal for age. No evidence of midline shift, mass lesion, hemorrhage or acute in farction. No extraaxial fluid collections are seen. The pituitary gland and suprasellar cistern are normal in configuration. WHITE MATTER: No significant signal abnormalities are seen in the white matter. POSTERIOR FOSSA: The cerebellum and brainstem are intact. The 4th ventricle is midline. The cerebellopontine angle is unremarkable. The cerebellar tonsils are normal in position. DIFFUSION IMAGING: No focal areas of restricted diffusion are seen. No evidence of acute infarction. EXTRACRANIAL: Bilateral air-fluid levels in the maxillary sinuses. CONCLUSION: 1. No acute findings in the brain. 2. Bilateral maxillary sinus disease with air-fluid levels. Huang Holliday MD on May 12, 2017 at 10:08 Board Certified Radiologist. This report was verified electronically.
[2017-05-12] MEDS ORDERED: ACETAMINOPHEN/CODEINE 300 MG/30 MG TAB PO ONE (10:30)
[2017-05-12] MEDS ORDERED: KETOROLAC TROMETHAMINE 10 MG TAB PO ONE (11:00)
[2017-05-12] MEDS ORDERED: PROMETHAZINE HCL 25 MG TAB PO ONE (11:00)
--- NOTE | 2017-05-12 12:04 | HHI.HP ---
[facility] Service [facility] Primary Care Physician No Primary Care Physician Admission Diagnosis CVA Diagnoses: Chief Complaint: Left-sided weakness Travel History International Travel<30 Days: No Contact w/Intl Traveler <30 Da: No Traveled to Known Affected Are: No History of Present Illness This patient is a 27-year-old female with a history of anxiety and depression also has chronic back pain and ran out of her hydrocodone recently. She came to the emergency room complaining of at least 6 hours of left-sided face arm and leg numbness with associated head pressure. She had some nausea and vision changes and light flashes. She says that she began having trouble walking and the numbness got so severe her sister brought her to the hospital. Since she has been in her hospital has received nursing care and ER attending evaluation her symptoms have improved. Initially she was found to have an acute stroke evaluation and was evaluated for TPA however she was found to have symptoms outside of the window for therapeutic intervention of TPA. She has been resting. She has requested pain medicine for her back. She has not had any fevers or chills. Patient has been eating without difficulty. She is recommended for further observation due to her acute nonspecific neurological symptoms Review of Systems Constitutional: DENIES: Diaphoretic episodes, Fatigue, Fever, Weight gain, Weight loss, Chills, Dizziness, Change in appetite, Night Sweats Eyes: DENIES: Blurred vision, Eye pain Respiratory: DENIES: Apneas, Cough, Snoring, Wheezing, Hemoptysis, Sputum production, Shortness of breath Cardiovascular: DENIES: Chest pain, Palpitations, Syncope, Dyspnea on Exertion , PND, Lower Extremity Edema, Orthopnea, Claudication Gastrointestinal: DENIES: Abdominal pain, Black stools, Bloody stools, Constipation, Diarrhea, Nausea, Vomiting, Difficulty Swallowing, Anorexia Genitourinary: DENIES: Abnormal vaginal bleeding, Dysmenorrhea, Dyspareunia, Sexual dysfunction, Urinary frequency, Urinary incontinence, Urgency, Hematuria , Dysuria, Nocturia, Vaginal discharge Musculoskeletal: DENIES: Joint pain, Muscle aches, Stiffness, Joint Swelling, Back pain, Neck pain Integumentary: DENIES: Abnormal pigmentation, Pruritus, Rash, Nail changes, Breast masses, Breast skin changes, Nipple discharge Hematologic/lymphatic: DENIES: Bruising, Lymphadenopathy Immunologic/allergic: DENIES: Eczema, Urticaria Neurologic: COMPLAINS OF: Localized weakness, Poor Balance, DENIES: Abnormal gait, Headache, Paresthesias, Seizures, Speech Problems, Tremor Psychiatric: COMPLAINS OF: Anxiety, DENIES: Confusion, Mood changes, Depression , Hallucinations, Agitation, Suicidal Ideation, Homicidal Ideation, Delusions Except as stated in HPI: all other systems reviewed are Neg Past Family Social History Past Medical History Anxiety and depression Migraine headaches Past Surgical History 3 Lumbar surgery 2 Reported Medications Reviewed in the EMR, patient denies any medications and says she recently ran out of hydrocodone about a month ago when she was receiving from her doctor in [place] Allergies: Coded Allergies: cyclobenzaprine (Unverified Allergy, Intermediate, sob, 09/22/16) latex (Unverified Allergy, Intermediate, Rash, 09/22/16) Active Ordered Medications Reviewed in the EMR Family History No alcohol dependency, smokes E cigarettes Works third shift at the [employer] Social History Mother from vulva cancer and father from cancer of unknown cause Physical Exam Vital Signs Vital Signs Date Time Temp Pulse Resp B/P (MAP) Pulse Ox O2 Delivery O2 Flow Rate FiO2 05/12/17 09:22 96.9 92 16 102/64 (77) 99 05/12/17 08:20 05/12/17 07:00 96 20 101/62 (75) 98 05/12/17 06:30 78 18 106/65 (79) 99 05/12/17 06:01 98.7 79 20 111/75 (87) 100 05/12/17 06:01 98 Room Air 05/12/17 06:00 88 18 111/75 (87) 99 05/12/17 05:40 78 20 100 Room Air 05/12/17 05:30 80 20 112/70 (84) 99 05/12/17 05:01 98.3 86 18 107/74 (85) 96 05/12/17 05:00 98 21 05/12/17 05:00 82 20 111/69 (83) 99 05/12/17 05:00 98 21 Physical Exam GENERAL: This is a well-nourished, well-developed patient, in no apparent distress. SKIN: No rashes, ecchymoses or lesions. Cool and dry. HEAD: Atraumatic. Normocephalic. No temporal or scalp tenderness. EYES: Pupils equal round and reactive. Extraocular motions intact. No scleral icterus. No injection or drainage. ENT: Nose without bleeding, purulent drainage or septal hematoma. Throat without erythema, tonsillar hypertrophy or exudate. Uvula midline. Airway patent. NECK: Trachea midline. No JVD or lymphadenopathy. Supple, nontender, no meningeal signs. CARDIOVASCULAR: Regular rate and rhythm without murmurs, gallops, or rubs. RESPIRATORY: Clear to auscultation. Breath sounds equal bilaterally. No wheezes , rales, or rhonchi. GASTROINTESTINAL: Abdomen soft, non-tender, nondistended. No hepato-splenomegaly , or palpable masses. No guarding. MUSCULOSKELETAL: Extremities without clubbing, cyanosis, or edema. No joint tenderness, effusion, or edema noted. No calf tenderness. Negative Homans sign bilaterally. NEUROLOGICAL: Awake and alert. Cranial nerves II through XII intact. Motor and sensory grossly within normal limits. Good passive range of motion without clonus, bilateral muscle strength in all muscle groups. Normal speech. Laboratory Laboratory Tests Test 05/12/17 04:55 05/12/17 05:50 White Blood Count 10.0 Red Blood Count 4.54 Hemoglobin 14.0 Hematocrit 42.5 Mean Corpuscular Volume 93.5 Mean Corpuscular Hemoglobin 30.8 Mean Corpuscular Hemoglobin Concent 32.9 Red Cell Distribution Width 12.5 Platelet Count 136 Mean Platelet Volume 10.6 Neutrophils (%) (Auto) 50.5 Lymphocytes (%) (Auto) 41.0 Monocytes (%) (Auto) 5.9 Eosinophils (%) (Auto) 2.4 Basophils (%) (Auto) 0.2 Neutrophils # (Auto) 5.1 Lymphocytes # (Auto) 4.1 Monocytes # (Auto) 0.6 Eosinophils # (Auto) 0.2 Basophils # (Auto) 0.0 CBC Comment DIFF FINAL Differential Comment Prothrombin Time 10.0 Prothromb Time International Ratio 1.0 Activated Partial Thromboplast Time 26.9 Fibrinogen 413 Blood Urea Nitrogen 12 Creatinine 0.66 Random Glucose 111 Calcium Level 9.2 Sodium Level 140 Potassium Level 3.7 Chloride Level 109 Carbon Dioxide Level 23.5 Anion Gap 8 Estimat Glomerular Filtration Rate 107 Total Creatine Kinase 35 Troponin I LESS THAN 0.02 Human Chorionic Gonadotropin, Quant LESS THAN 1 Urine Collection Type CATH Urine Color YELLOW Urine Turbidity CLEAR Urine pH 6.0 Urine Specific [place] 1.020 Urine Protein NEG Urine Glucose (UA) NEG Urine Ketones NEG Urine Occult Blood NEG Urine Nitrite NEG Urine Bilirubin NEG Urine Urobilinogen 0.2 Urine Leukocyte Esterase NEG Urine WBC 6-8 Urine Squamous Epithelial Cells 0-5 Urine Trichomonas OCC Microscopic Urinalysis Comment CULTURE INDICATED Urine Opiates Screen NEG Urine Barbiturates Screen NEG Urine Amphetamines Screen NEG Urine Benzodiazepines Screen NEG Urine Cocaine Screen NEG Urine Cannabinoids Screen NEG Date/Time Source Procedure Growth Status 05/12/17 05:50 Urine Catheterized Urine Urine Culture Pending Received Result Diagram: 05/12/175 05/12/17 0455 Imaging Last Impressions Neck CTA 05/12/177 Signed Impressions: Service Date/Time: Friday, May 12, 2017 05:26 - CONCLUSION: Negative Gagandeep Jason MD Head CTA 05/12/17 0507 Signed Impressions: Service Date/Time: Friday, May 12, 2017 05:26 - CONCLUSION: Negative study Gagandeep Jason MD Head Magnetic Resonance Angiography 05/12/17 0000 Signed Impressions: Service Date/Time: Friday, May 12, 2017 08:47 - CONCLUSION: Negative exam. Intracranial vessels are all patent without aneurysmal disease. Coy Fowler MD Head CT 05/12/17 0000 Signed Impressions: Service Date/Time: Friday, May 12, 2017 05:06 - CONCLUSION: No acute intracranial findings. Sinus disease Gagandeep Jason MD Brain MRI 05/12/17 0000 Signed Impressions: Service Date/Time: Friday, May 12, 2017 08:47 - CONCLUSION: 1. No acute findings in the brain. 2. Bilateral maxillary sinus disease with air-fluid levels. MD Clyde Knighti VTE Risk Assessment Caprini VTE Risk Assessment: Mod/High Risk (score >= 2) Caprini Risk Assessment Model Point Value = 1 Point Value = 2 Point Value = 3 Point Value = 5 Age 41-60 Minor surgery BMI > 25 kg/m2 Swollen legs Varicose veins or History of unexplained or recurrent spontaneous Oral contraceptives or hormone replacement Sepsis (< 1 month) Serious lung disease, including pneumonia (< 1 month) Abnormal pulmonary function Acute myocardial infarction Congestive heart failure (< 1 month) History of inflammatory bowel disease Medical patient at bed rest Age 61-74 Arthroscopic surgery Major open surgery (> 45 min) Laparoscopic surgery (> 45 min) Malignancy Confined to bed (> 72 hours) Immobilizing plaster cast Central venous access Age >= 75 History of VTE Family history of VTE Factor V Leiden Prothrombin [id number] Lupus anticoagulant Anticardiolipin antibodies Elevated serum homocysteine Heparin-induced thrombocytopenia Other congenital or acquired thrombophilia Stroke (< 1 month) Elective arthroplasty Hip, pelvis, or leg fracture Acute spinal cord injury (< 1 month) Prophylaxis Regimen Total Risk Factor Score Risk Level Prophylaxis Regimen 0-1 Low Early ambulation 2 Moderate Order ONE of the following: *Sequential Compression Device (SCD) *Heparin 5000 units SQ BID 3-4 Higher Order ONE of the following medications: *Heparin 5000 units SQ TID *Enoxaparin/Lovenox 40 mg SQ daily (WT < 150 kg, CrCl > 30 mL/min) *Enoxaparin/Lovenox 30 mg SQ daily (WT < 150 kg, CrCl > 10-29 mL/min) *Enoxaparin/Lovenox 30 mg SQ BID (WT < 150 kg, CrCl > 30 mL/min) AND/OR *Sequential Compression Device (SCD) 5 or more Highest Order ONE of the following medications: *Heparin 5000 units SQ TID (Preferred with Epidurals) *Enoxaparin/Lovenox 40 mg SQ daily (WT < 150 kg, CrCl > 30 mL/min) *Enoxaparin/Lovenox 30 mg SQ daily (WT < 150 kg, CrCl > 10-29 mL/min) *Enoxaparin/Lovenox 30 mg SQ BID (WT < 150 kg, CrCl > 30 mL/min) AND *Sequential Compression Device (SCD) Assessment and Plan Problem List: (1) Neurological symptoms ICD Code: R29.90 - Unspecified symptoms and signs involving the nervous system Plan: Etiology unclear. Does not appear to be a stroke with normal imaging and atypical presentation and 0 risk factors. Will continue with PT evaluation and follow-up with neurology consult Will treat with Phenergan and pain medication for improvement Assessment and Plan Likely discharge pending neuro consult Code Status Full code Discussed Condition With Patient, ER MD Virgilio,Ro Boyd MD May 12, 2017 12:04
[2017-05-12 14:58] LABS: CHOLESTEROL/ HDL RATIO 4.18 RATIO; HDL CHOLESTEROL 35.1 MG/DL (40.0-60.0)
--- NOTE | 2017-05-12 15:01 | MB ---
cc: Kell Jose MD DATE: 05/12/2017 HISTORY OF PRESENT ILLNESS: She is 27 years old seen in neurological consultation. She was brought to the hospital early this morning with a stroke alert when she developed some left-sided weakness. This was associated with the fact that there is a history of anxiety, depression, and chronic back pain. She ran out of hydrocodone recently. 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 Apparently, some visual symptoms as well and nausea. She had difficulty walking and she was brought to the hospital. A stroke workup was immediately carried out. She had a number of studies including brain scans, which were CT brain, MRI brain, CT angio head and neck, and these were all normal. She was not a candidate for TPA. She does not take any medications. As she tells me, though, I am picking up information about the chronic use of painkillers. PHYSICAL EXAMINATION: Neurologic exam was somewhat limited. She was awakening and she was oriented. The ocular movements and visual pham full. No facial weakness. Speech was normal. She did not put the best effort with her left upper extremity and observed fluctuation. When I raise her left arm for reflexes as she was lying down, she maintained the arm elevated, but then when I asked her to, later on, elevate the arms, she initially did not elevate the left arm at all . She does have a dice person. The left leg seems to be strong. Reflexes were trace responses throughout and plantar responses flexor. LABORATORY DATA: CBC is normal. Chemistry is essentially unremarkable with glucose being 111. Toxicology is all negative. ASSESSMENT Improving left hemiparesis. The history of anxiety and chronic back pain. Imaging studies were all normal as discussed above. Lipid profile pending. This is a young patient and the possibility of cerebrovascular event seems unlikely at this point considering the imaging studies. Continue the aspirin. I am going to request a hypercoagulable profile. Have physical therapy take her out of bed for ambulation and she does not take any hormones. There is no other obvious risk for cerebrovascular disease. She stable, she probably can be discharged tomorrow morning. She is to have an echocardiogram as well. She has been afebrile. Thank you for asking us to assist in her care. MD BRAD Sloan/RAMAN , 01:52 PM , 03:01 PM
[2017-05-12] MEDS ORDERED: PROM25TA10 PO (15:31)
[2017-05-12] MEDS ORDERED: KETO10 PO (15:31)
--- NOTE | 2017-05-12 15:32 | HHI.DCPOC ---
Discharge Care Plan Diagnosis: (1) Neurological symptoms Goals to Promote Your Health * To prevent worsening of your condition and complications * To maintain your health at the optimal level Directions to Meet Your Goals Take your medications as prescribed Follow your dietary instruction Follow activity as directed Keep your appointments as scheduled Take your immunizations and boosters as scheduled If your symptoms worsen call your PCP, if no PCP go to Urgent Care Center or Emergency Room Smoking is Dangerous to Your Health. Avoid second hand smoke Call the 24-hour hour crisis hotline for domestic abuse at Ro Poole MD May 12, 2017 15:32
[2017-05-15 23:52] LABS: FACTOR VIII(8) ACTIVITY 97 (50-180); HOMOCYSTEINE 8.4 umol/L (<10.4)
[2017-05-16 03:50] LABS: ANTI-THROMBIN III ACT 98 (80-120)
[2017-05-16 15:53] LABS: PHOSPHATIDYLSERINE AB IGA LESS THAN 20.0 U/mL (< 20.0); PHOSPHATIDYLSERINE AB IGG LESS THAN 10.0 U/mL (< 11.0); PHOSPHATIDYLSERINE AB IGM LESS THAN 25.0 U/mL (< 25.0)
[2017-05-17 15:53] LABS: DRVVT 1:1 MIX ND (CORRECTED); DRVVT CONFIRM ND (NEGATIVE); HEXAGONAL PHASE CONFIRM ND (NEGATIVE)
[2017-05-18 03:49] LABS: ACTIVATED PROTEIN C RESISTANCE 4.6 ratio (> OR = 2.1)
[2017-05-18 18:20] LABS: PROTEIN C ACTIVITY 89 % (70 - 150); PROTEIN S ACTIVITY 51 % (50 - 160)
== END 2017-05-12 16:39 | disposition home or self-care (01) ==
LOC: PHED 04:48 → PHEDA 07:20 → PH3B 09:08
PROVIDERS: ADMIT Hospitalist; ATTEND Hospitalist
DX: R29.90 Unspecified symptoms and signs involving the nervous system (principal); G81.94 Hemiplegia, unspecified affecting left nondominant side; R20.0 Anesthesia of skin; R11.0 Nausea; H53.9 Unspecified visual disturbance; R26.2 Difficulty in walking, not elsewhere classified; I49.9 Cardiac arrhythmia, unspecified; M54.9 Dorsalgia, unspecified; G89.29 Other chronic pain; G43.909 Migraine, unspecified, not intractable, without status migrainosus; F41.9 Anxiety disorder, unspecified; F32.9 Major depressive disorder, single episode, unspecified; F17.210 Nicotine dependence, cigarettes, uncomplicated; F17.290 Nicotine dependence, other tobacco product, uncomplicated
CPT/HCPCS: 70450; 70496; 70498; 70544; 70551; 80048; 80061; 80307; 81001; 81240; 81241; 81291; 82550; 83090; 84484; 84702; 85025; 85240; 85300; 85303; 85306; 85307; 85384; 85610; 85613; 85652; 85730; 86147; 86148; 86850; 86900; 86901; 87086; 93005; 96374; 99291; G0378; J2405; J7030; P9612; Q0169; Q9967; 86146

== ENCOUNTER 2017-06-30 06:50 | Emergency (ER) | payer MEDICAID ==
[~2017-06-30] VITALS: Ht 171.4 cm; Wt 82.0 kg
[~2017-06-30 06:50] MED LIST changes: -BUTA1CAP5 PO; -HYDR-3133 PO; -IBUP1TAB7 PO; +KETO10 PO; -MELO15TA20 PO; +PROM25TA10 PO; -TIZA4CAP3 PO
[2017-06-30 06:55] VITALS: BP 109/73; PULSE 89; RESP 16; TEMP 98.7; O2SAT 98
[2017-06-30] MEDS ORDERED: TYLE325T PO (07:09)
[2017-06-30] MEDS ORDERED: IBUP-232 PO (07:11)
[2017-06-30] MEDS ORDERED: TYLETAB34 PO (07:11)
[2017-06-30] MEDS ORDERED: PENI500T PO (07:11)
--- NOTE | 2017-06-30 07:13 | PD ---
HPI Chief Complaint: Oral / Dental Pain or Problem Time Seen by Provider: 07:07 Travel History International Travel<30 days: No Contact w/Intl Traveler<30days: No Traveled to known affect area: No History of Present Illness HPI 27-year-old female who presents the emergency room complaints of dental pain. Patient reports that she began to have pain yesterday to her right lower teeth, reports that she has poor dentition at baseline, the dentist she was going to stop taking her insurance. Patient concerned for possible dental abscess. Patient reports no fever or chills, reports increased pain to lower teeth PFSH Past Medical History Hx Anticoagulant Therapy: No Anxiety: Yes Depression: Yes Cardiovascular Problems: No Chemotherapy: No Cerebrovascular Accident: Yes (TIA) Diabetes: No Diminished Hearing: No Genitourinary: No Musculoskeletal: Yes Neurologic: Yes Psychiatric: Yes Reproductive: No Respiratory: No Migraines: Yes Influenza Vaccination: No ?: Not LMP: 1 WEEK AGO : 5 Para: 4 Miscarriage: 1 : 0 Tubal Ligation: Yes Past Surgical History Section: Yes (x4) Gynecologic Surgery: Yes (4 c sections) Hysterectomy: No Social History Alcohol Use: Yes (SOCIALLY) Tobacco Use: Yes (1/2 ppd -E-CIGARETTES) Substance Use: No (PT DENIES ) Allergies-Medications (Allergen,Severity, Reaction): Coded Allergies: cyclobenzaprine (Unverified Allergy, Intermediate, sob, 06/30/17) latex (Unverified Allergy, Intermediate, Rash, 06/30/17) Reported Meds & Prescriptions Reported Meds & Active Scripts Active Ketorolac (Ketorolac Tromethamine) 10 Mg Tab 10 Mg PO Q6HR PRN Phenergan (Promethazine HCl) 25 Mg Tablet 25 Mg PO Q6H PRN Review of Systems General / Constitutional: No: Fever Eyes: No: Visual changes HENT: Positive: Dental Difficulties, No: Headaches Cardiovascular: No: Chest Pain or Discomfort Respiratory: No: Shortness of Breath Gastrointestinal: No: Abdominal Pain Genitourinary: No: Dysuria Musculoskeletal: No: Pain Skin: No Rash Neurologic: No: Weakness Psychiatric: No: Depression Endocrine: No: Polydipsia Hematologic/Lymphatic: No: Easy Bruising Physical Exam Narrative GENERAL: Well-nourished, well-developed patient. SKIN: Focused skin assessment warm/dry. HEAD: Normocephalic. EYES: No scleral icterus. No injection or drainage. NECK: Supple, trachea midline. No JVD or lymphadenopathy. MOUTH: Patient with poor dentition, pain to posterior right molars CARDIOVASCULAR: Regular rate and rhythm without murmurs, gallops, or rubs. RESPIRATORY: Breath sounds equal bilaterally. No accessory muscle use. GASTROINTESTINAL: Abdomen soft, non-tender, nondistended. MUSCULOSKELETAL: No cyanosis, or edema. BACK: Nontender without obvious deformity. No CVA tenderness. Data Data Last Documented VS Vital Signs Date Time Temp Pulse Resp B/P (MAP) Pulse Ox O2 Delivery O2 Flow Rate FiO2 06/30/17 06:55 98.7 89 16 109/73 (85) 98 MDM Medical Decision Making Medical Screen Exam Complete: Yes Emergency Medical Condition: Yes Medical Record Reviewed: Yes Interpretation(s) Vital Signs Date Time Temp Pulse Resp B/P (MAP) Pulse Ox O2 Delivery O2 Flow Rate FiO2 06/30/17 06:55 98.7 89 16 109/73 (85) 98 Differential Diagnosis Dental caries versus dental abscess Narrative Course Patient given dental clinic referrals, understands importance of follow-up. Plan to treat for possible dental abscess. Patient will return to the emergency room as needed. Diagnosis Primary Impression: Pain, dental Patient Instructions: General Instructions Departure Forms: Tests/Procedures, Work Release Enter return to work date: July 02, 2017 Additional Instructions: Take all antibiotics as prescribed Please follow up a dentist as soon as possible Return to the ER if symptoms worsen or progress Return to the ER as needed Med/Other Pt SpecificInfo: Prescription(s) given Scripts Acetaminophen-Codeine (Tylenol-Codeine #3) 300-30 mg Tab 1 TAB PO Q6H Y for PAIN, #12 TAB 0 Refills Prov: Sophie Serna DO 06/30/17 Ibuprofen (Ibuprofen) 600 Mg Tab 600 MG PO Q6H Y for Pain/Inflammation, #40 TAB 0 Refills Prov: Sophie Serna DO 06/30/17 Penicillin V Potassium (Penicillin V Potassium) 500 Mg Tab 500 MG PO Q6H for Infection for 10 Days, #40 TAB 0 Refills Prov: Sophie Serna DO 06/30/17 Disposition: 01 DISCHARGE HOME Condition: Stable Sophie Serna DO June 30, 2017 07:13
== END 2017-06-30 07:30 | disposition home or self-care (01) ==
LOC: PHED 06:50
DX: K08.89 Other specified disorders of teeth and supporting structures (principal); F32.9 Major depressive disorder, single episode, unspecified; F17.290 Nicotine dependence, other tobacco product, uncomplicated; Z86.73 Personal history of transient ischemic attack (TIA), and cerebral infarction without residual deficits; Z79.899 Other long term (current) drug therapy
CPT/HCPCS: 99283